=== PATIENT | female | born 1955 | race Caucasian/White ===

== ENCOUNTER 2019-01-28 13:40 | Outpatient (CLI) | payer OTHER ==
--- NOTE | 2019-01-28 15:01 | MMO ---
Bilateral MAMMO Bilat Screen [facility]. CLINICAL HISTORY: Patient is 64 years old and is seen for screening. The patient has the following family history of breast cancer: sister and maternal grandmother. The patient has a history of other cancer at age 41. VIEWS: The views performed were: bilateral craniocaudal with tomosynthesis and bilateral mediolateral oblique with tomosynthesis. MAMMOGRAM FINDINGS: There are scattered fibroglandular densities. There are benign appearing calcifications seen in both breasts. There are no suspicious masses, suspicious calcifications, or new areas of architectural distortion. IMPRESSION: THERE IS NO MAMMOGRAPHIC EVIDENCE OF MALIGNANCY. A ROUTINE FOLLOW-UP MAMMOGRAM IN 1 YEAR IS RECOMMENDED. THE RESULTS OF THIS EXAM WERE SENT TO THE PATIENT. ACR BI-RADS Category 2 - Benign finding MAMMOGRAPHY NOTE: 1. A negative mammogram report should not delay a biopsy if a dominant of clinically suspicious mass is present. 2. Approximately 10% to 15% of breast cancers are not detected by mammography. 3. Adenosis and dense breasts may obscure an underlying neoplasm.
--- NOTE | 2019-01-28 15:17 | ULT ---
PELVIC ULTRASOUND: 01/28/19 HISTORY: Postmenopausal bleeding. Patient has history of vulvar malignancy. When she uses a vaginal cream she starts bleeding. TECHNIQUE: Multiplanar dubois scale and color Doppler images are obtained in a transabdominal and transvaginal pel piper ultrasound. The ovaries were not definitely seen. FINDINGS: The uterus is heterogeneous in appearance. There is thinning of the myometrium but there is a thicken ed endometrial stripe which is heterogeneous in appearance. The endometrial stripe measures 4.4 cm i n thickness. No free fluid is seen in the pelvis. Neither ovary is identified. IMPRESSION: Thickened endometrial stripe could be secondary to a uterine malignancy or endometrial hyperplasia. POS: [facility]
== END 2019-01-28 13:41 | disposition home or self-care (01) ==
LOC: BICULT 13:40
PROVIDERS: ATTEND Family Medicine
DX: Z12.31 Encounter for screening mammogram for malignant neoplasm of breast (principal); N95.0 Postmenopausal bleeding; R93.89 Abnormal findings on diagnostic imaging of other specified body structures; Z80.3 Family history of malignant neoplasm of breast; Z85.89 Personal history of malignant neoplasm of other organs and systems
CPT/HCPCS: 76856; 77063; 77067

== ENCOUNTER 2019-02-13 06:01 | Day surgery (SDC) | payer OTHER ==
[2019-02-12 12:54] VITALS: BMI 28.3
--- NOTE | 2019-02-13 07:55 | HP ---
HISTORY OF PRESENT ILLNESS: This is a 64-year-old female, referred to me for evaluation of occult GI bleeding. She has no family history of colon cancer. The patient had lower abdominal cramping pain off and on. The patient was in her primary care doctor and had a stool testing done for an occult blood. The stool came back positive for occult blood. The patient has no upper GI symptoms. The patient comes for a colonoscopy for colon cancer screening and evaluation of occult GI bleeding. ALLERGIES: NONE. SOCIAL HISTORY: The patient smokes. She drinks alcohol socially. MEDICAL ILLNESSES: 1. Depression. 2. Insomnia. 3. Hyperlipidemia. 4. Vulvectomy in the past. PHYSICAL EXAMINATION: GENERAL: Appears comfortable. VITAL SIGNS: Pulse is 75, blood pressure is 150/90. HEENT: Conjunctivae clear. CARDIOVASCULAR SYSTEM: First and second heart sounds normal. LUNGS: Clear to auscultation. ABDOMEN: Soft. No organomegaly. No tenderness. No masses. ADMITTING DIAGNOSIS: A 64-year-old female comes for a colonoscopy for colon cancer screening. She also had positive stool for occult blood. Job ID: [id number] MTDD
[2019-02-13] MEDS ORDERED: PROPOFOL 200 MG/20 ML VIAL ONE (16:19)
[2019-02-13] MEDS ORDERED: Lidocaine 1% PF 5 ML VIAL ONE (16:19)
--- NOTE | 2019-02-16 13:05 | OP ---
DATE OF PROCEDURE: 02/13/2019 PREOPERATIVE DIAGNOSIS: A 64-year-old female with occult gastrointestinal bleeding, undergoing colonoscopy. POSTOPERATIVE DIAGNOSES: 1. Sigmoid diverticular disease. 2. Sessile polyp, hepatic flexure, status post snare cautery with good hemostasis. 3. Markedly redundant, tortuous colon. PROCEDURE PERFORMED: Colonoscopy with polypectomy. DESCRIPTION OF PROCEDURE: The patient was placed on her left lateral position and was given sedation by Anesthesia Department. A rectal exam was done before the scope was advanced into the rectum. No lesions felt on rectal exam. A Pentax video colonoscope was introduced into the rectum and advanced all the way into the cecum. The prep was very good. The mucosa appeared normal throughout the colon. The patient's colon was very tortuous, redundant colon. Abdominal compression was used to advance the scope all the way into the cecum. The appendicular opening, ileocecal wall, and cecum, no pathology. The ascending colon, no lesion. The hepatic flexure showed a sessile polyp. This was removed with snare cautery with good hemostasis. The transverse colon, splenic flexure, descending colon, no pathology. The sigmoid colon showed scattered diverticula. Rectal hemorrhoids. DISCHARGE PLAN: This is a 64-year-old female, referred to me by Dr. Kavya Bauer for colonoscopy because of heme-positive stool. She underwent colonoscopy and polypectomy. DISCHARGE RECOMMENDATIONS: 1. The patient advised to call me if she develops any abdominal pain, hematochezia, or fever. 2. In the absence of any of the above symptoms, she will come back to me in 2 weeks. Job ID: [id number]
== END 2019-02-13 09:55 | disposition home or self-care (01) ==
LOC: SDC 06:01
PROVIDERS: ATTEND Internal Medicine Gastroenterology
PROC: 0DBL8ZX Excision of Transverse Colon, Via Natural or Artificial Opening Endoscopic, Diagnostic (ICD-10-PCS; principal; 2019-02-13)
DX: D12.3 Benign neoplasm of transverse colon (principal); K57.31 Diverticulosis of large intestine without perforation or abscess with bleeding; K63.89 Other specified diseases of intestine; K64.9 Unspecified hemorrhoids; F32.9 Major depressive disorder, single episode, unspecified; F17.200 Nicotine dependence, unspecified, uncomplicated; G47.00 Insomnia, unspecified; E78.5 Hyperlipidemia, unspecified; Z79.899 Other long term (current) drug therapy
CPT/HCPCS: 88305; J2001; J2704

== ENCOUNTER 2019-03-06 08:29 | Outpatient (CLI) | payer OTHER ==
--- NOTE | 2019-03-06 10:26 | CT ---
CT CHEST WITH IV CONTRAST CT ABDOMEN WITH IV CONTRAST CT PELVIS WITH IV CONTRAST: HISTORY: Cancer of isthmus uteri. COMPARISON: None. CORRELATION: Pelvic ultrasound of 01/28/2019. FINDINGS: No mediastinal, hilar, or axillary mass or lymphadenopathy is seen. No pleural or pericardial effusi ons are identified. No pneumothoraces, focal areas of consolidation, or lung nodules/masses are iden tified. No calcified gallstones are noted. There is a 1.5 cm heterogeneous lesion in the lateral segment of the left lobe of the liver. There is borderline splenomegaly measuring 13.3 cm in oblique AP dimensi on. The pancreas, adrenal glands, and left kidney are normal. There is a small low-density lesion i n the right kidney, likely a cyst. No free air, free fluid, or lymphadenopathy is seen in the abdomen or pelvis. There is a suggestion of a mass in the uterus. The small bowel loops are not abnormally dilated. There is sigmoid diverti culosis. There is prominence of the wall of the sigmoid colon. There are vascular calcifications without evidence of aneurysmal dilatation of the thoracoabdominal a neptali. Multilevel degenerative changes are seen in the thoracolumbar spine. No osteolytic or osteobl astic lesions are noted. IMPRESSION: 1. Indeterminate 15 mm left liver lobe lesion. Evaluation with PET scan would be helpful. 2. Borderline splenomegaly. 3. Sigmoid diverticulosis. 4. Prominence of the wall of the sigmoid colon. This should be evaluated with colonoscopy. POS: [facility]
[2019-03-06] MEDS ORDERED: ISOVUE-370 76%-LOCM 1 ML ONE (11:42)
== END 2019-03-06 08:30 | disposition home or self-care (01) ==
LOC: BICCT 08:29
PROVIDERS: ATTEND Obstetrics & Gynecology Gynecologic Oncology
DX: C54.0 Malignant neoplasm of isthmus uteri (principal); K57.30 Diverticulosis of large intestine without perforation or abscess without bleeding; K76.9 Liver disease, unspecified; R16.1 Splenomegaly, not elsewhere classified
CPT/HCPCS: 71260; 74177; 82565; Q9966

== ENCOUNTER 2019-04-03 08:11 | Outpatient (CLI) | payer OTHER ==
--- NOTE | 2019-04-03 10:13 | MRI ---
MRI ABDOMEN WITH AND WITHOUT IV CONTRAST: HISTORY: Cancer of the uterus, abnormal CT scan of 03/06/2019, other specified disease of liver Correlation: CT scan of 03/06/2019 FINDINGS: There is a 15 mm lesion in the left lobe of the liver with low T1, high T2 signal and no postcontrast enhancement, consistent with a simple cyst. Tiny cysts are also seen in the kidneys. The spleen, pancreas, adrenal glands and gallbladder appear normal. No free fluid or lymphadenopathy seen in the abdomen. There are degenerative changes in the spine. There is a tiny fat-containing abdominal wall hernia involving the right paramedian lower anterior abdomen.. IMPRESSION: No evidence of metastatic disease.
[2019-04-03] MEDS ORDERED: Gadobenate Dimeglumine 529 MG/1 ML (20ML VIAL) ONE (16:09)
== END 2019-04-03 08:12 | disposition home or self-care (01) ==
LOC: SCSMRI 08:11 → BICMRI 08:12
PROVIDERS: ATTEND Obstetrics & Gynecology Gynecologic Oncology
DX: K76.89 Other specified diseases of liver (principal); C54.0 Malignant neoplasm of isthmus uteri
CPT/HCPCS: 74183; A9577

== ENCOUNTER 2019-04-16 09:06 | Day surgery (SDC) | payer OTHER ==
[2019-04-15 14:20] VITALS: BMI 27.4
[2019-04-16 11:06] LABS: #Eosinphils 0.5 thou/uL (0.0-0.7); #Lymphocytes 1.8 thou/uL (1.20-3.40); #Monocytes 0.5 thou/uL (0.11-0.59); #Neutrophils 3.8 thou/uL (1.40-6.50); %Basophils 0.5 % (0.0-1.0); %Eosinophils 7.1 % (0.0-10.0); %Lymphocytes 26.8 % (21.0-51.0); %Monocytes 7.8 % (0.0-10.0); %Neutrophils 57.7 % (42.0-75.0); Hemoglobin 14.9 g/dL (12.0-16.0); Mean Corpuscular HGB CONC 34.2 g/dL (32.0-36.0); Mean Corpuscular Hemoglobin 33.9 pg (27.0-31.0); Mean Corpuscular Volume 99.2 fL (78.0-98.0); Mean Platelet Volume 8.5 fL (7.4-10.4); Platelet Count 175 thou/uL (130-400); RBC Distribution Width 12.5 % (11.5-14.5); Red Blood Cell (RBC) Count 4.38 mill/uL (4.20-5.40); White Blood Cell (WBC) Count 6.6 thou/uL (4.8-10.8)
[2019-04-16] MEDS ORDERED: Ketorolac Tromethamine 30 MG/ML VIAL ONE (11:09)
[2019-04-16 11:32] LABS: Anion Gap 13 mmol/L (10-20); BUN (Urea Nitrogen) 16 mg/dL (9.8-20.1); Calc. Creatinine Clearance 85 mL/min (70-130); Calcium 9.6 mg/dL (7.8-10.44); Carbon Dioxide 26 mmol/L (23-31); Chloride 104 mmol/L (98-107); Estimated GFR-MDRD 81; Glucose 101 mg/dL (80-115); Potassium 4.6 mmol/L (3.5-5.1); Sodium 138 mmol/L (136-145)
[2019-04-16] MEDS ORDERED: Midazolam HCl 2 mg/2 ml Vial ONE (12:31)
[2019-04-16] MEDS ORDERED: Lidocaine 1% (PF) 30 ML VIAL ONE (13:13)
[2019-04-16] MEDS ORDERED: Bupivacaine/Epinephrine 0.25% 30 ML VIAL ONE (13:13)
[2019-04-16] MEDS ORDERED: Glycopyrrolate 0.2 MG/ML 5 ML SYRINGE ONE (14:04)
[2019-04-16] MEDS ORDERED: PROPOFOL 200 MG/20 ML VIAL ONE (14:04)
[2019-04-16] MEDS ORDERED: ePHEDrine 50 MG/ML VIAL ONE (14:04)
[2019-04-16] MEDS ORDERED: HYDROcodone/Acetaminophen 5/325 mg Tablet ONE (14:50)
--- NOTE | 2019-04-16 17:26 | RAD ---
RADIOGRAPH CHEST 1 VIEW: 04/16/19 HISTORY: 64-year-old female status post Mediport placement. FINDINGS: There are no air space densities, pulmonary edema, pneumothorax, or cardiomegaly. The lateral costop hrenic angles are sharp. There is a right subclavian chest port with distal tip overlying the SVC. IMPRESSION: 1. No acute cardiopulmonary findings. 2. Right sided implantable vascular access port placement without pneumothorax. jn [] POS: [facility]
--- NOTE | 2019-04-17 10:46 | OP ---
DATE OF PROCEDURE: 04/16/2019 PREOPERATIVE DIAGNOSIS: Endometrial cancer. POSTOPERATIVE DIAGNOSIS: Endometrial cancer. PROCEDURE PERFORMED: Placement of right subclavian stent standard size power compatible MediPort. ANESTHESIA: Total intravenous anesthesia with local using 0.25% Marcaine with epinephrine. INDICATIONS: The patient is a 64-year-old white female recently diagnosed with endometrial cancer. She presents this time for MediPort placement for chemotherapy administration. DESCRIPTION OF OPERATION: Informed consent was obtained. The patient was taken to the operating room where total intravenous anesthesia was obtained with the patient in supine position. Right periclavicular area was prepped with ChloraPrep and draped in sterile fashion. Local anesthetic was infiltrated and a large-gauge needle was passed under the clavicle in the subclavian vein. Guidewire was passed through the needle and fluoroscopically confirmed to enter the superior vena cava. Additional local anesthetic was infiltrated and transverse incision was created based on needle insertion site. A subcutaneous pocket was dissected inferiorly. Introducer dilator was passed over the guidewire under fluoroscopic guidance. The guidewire and dilator were removed, and the catheter was passed through the introducer. The tip of the catheter was positioned at the atriocaval junction and the catheter was trimmed to the appropriate length and secured to the locking hub of the MediPort. The port was then placed in the subcutaneous pocket where it was secured to the pectoral fascia with 2 interrupted sutures of 3-0 Prolene. The incision was then closed in layers with 3-0 and 4-0 Monocryl. Additional local anesthetic was infiltrated. The port was cannulated with a Ann needle and it aspirated blood freely and was flushed with heparinized saline. Dermabond was placed externally on the skin incision. There were no complications. Blood loss was negligible. The patient tolerated the procedure well and was taken to recovery room in stable condition. FINDINGS: I chose a standard size port and this was placed in the right subclavian vein uneventfully. There was essentially no blood loss and there were no complications. Fluoroscopy was used throughout the procedure. The patient tolerated the procedure well and was taken to recovery room in stable condition. Job ID: [id number]
== END 2019-04-16 15:03 | disposition home or self-care (01) ==
LOC: SDC 09:06
PROVIDERS: ATTEND Specialist
PROC: 05H533Z Insertion of Infusion Device into Right Subclavian Vein, Percutaneous Approach (ICD-10-PCS; principal; 2019-04-16)
DX: C54.1 Malignant neoplasm of endometrium (principal); F32.9 Major depressive disorder, single episode, unspecified; F17.210 Nicotine dependence, cigarettes, uncomplicated; A63.0 Anogenital (venereal) warts; Z79.899 Other long term (current) drug therapy
CPT/HCPCS: 71045; 76000; 80048; 85025; 93005; 93010; C1788; J0131; J0690; J1642; J1885; J2001; J2250; J2704; J3490

== ENCOUNTER 2020-04-17 14:18 | Inpatient (IN) | payer OTHER ==
[~2020-04-17 14:18] MED LIST: Dexamethasone 20 MG/5 ML VIAL ONE; EPHEDRINE 25 MG/5 ML SYRINGE ONE; Ketorolac Tromethamine 30 MG/ML VIAL ONE; Lidocaine 1% PF 5 ML VIAL ONE; Ondansetron PF 4 MG/2 ML Vial ONE; PROPOFOL 200 MG/20 ML VIAL ONE
[2020-04-17] MEDS ORDERED: Iothalamate Meglumine 60% 50 ML VIAL FS ONE (15:34)
[2020-04-17] MEDS ORDERED: Acetaminophen 325 MG TAB PO PRN (15:43)
[2020-04-17] MEDS ORDERED: Morphine 2 MG/ML VIAL SLOW IVP PRN (15:45)
[2020-04-17] MEDS ORDERED: Meperidine HCl/PF 25 MG/ML VIAL SLOW IVP PRN (16:10)
[2020-04-17] MEDS ORDERED: Promethazine HCl 25 MG/ML VIAL SLOW IVP PRN (16:10)
[2020-04-17] MEDS ORDERED: Ondansetron HCl/PF 4 MG/2 ML Vial IVP PRN (16:10)
[2020-04-17] MEDS ORDERED: Promethazine HCl 25 MG/ML VIAL IM PRN (16:10)
[2020-04-17] MEDS ORDERED: Levofloxacin 500 mg/D5W 100 ml Premix Bag ONE (16:16)
--- NOTE | 2020-04-17 16:45 | HP ---
CHIEF COMPLAINT: Back pain. HISTORY OF PRESENT ILLNESS: This is a 65-year-old female with history of endometrial cancer, treated with surgery, chemotherapy (last treatment in July 2019), and radiation therapy, who presents to [facility] with a complaint of back pain. The patient reports approximately 10 or 11 days ago the onset of a bloating sensation in her abdomen when she ate. This was followed by approximately a week ago pain on the left side of her back that alternates between throbbing, aching, and stabbing. The pain has been fairly constant, radiates underneath her left ribs. There is no prior history of similar symptoms. She has been taking Advil approximately two tablets every 2 hours to relieve the pain that she rates at a 9/10 in severity at the worst, and a 4/10 with Advil. No associated nausea, vomiting. No chest pain or difficulty breathing. The patient reports a history of endometrial cancer for which she underwent a complete hysterectomy. She reports having three cycles of chemotherapy, and three weeks out of four of radiation therapy. She reports being sick with mouth ulcers, gastritis, and some other GI symptoms and choosing not to complete treatment. The patient was seen in [facility], for which she had a CT scan which shows obstruction of her left ureter by a soft tissue mass, hydronephrosis and forniceal rupture. Dr. Bergman of Urology was contacted, and hospitalist called for transfer and admission. The patient received 4 mg IV morphine x3, Ketoralac 15 mg IV, normal saline 1 L x2, and Zofran 4 mg IV. PAST MEDICAL HISTORY: 1. Endometrial cancer, status post chemotherapy and radiation therapy, both incomplete as reported above. 2. Depression. 3. Insomnia. 4. Dyslipidemia. PAST SURGICAL HISTORY: 1. Complete hysterectomy. 2. Port placement. CURRENT MEDICATIONS per patient and chart review: 1. Zoloft 25 mg once daily. 2. Trazodone 50 mg at night. ALLERGIES: THE PATIENT DENIES. SOCIAL HISTORY: The patient smokes about a half a pack per day, long-standing use. Alcohol, one glass of wine at night. She denies any history of withdrawal symptoms. She lives with her boyfriend and reports that either he or her daughter Tasia are the surrogate decision makers. She is a full code. FAMILY HISTORY: Significant for different types of cancer, heart disease and stroke. REVIEW OF SYSTEMS: Negative for any visual changes. Positive for dry mouth. Negative for nausea, vomiting, fevers, chills, chest pain or difficulty breathing. All remaining review of systems are reviewed and negative. PHYSICAL EXAMINATION: VITAL SIGNS: Out at [facility], blood pressure was 160/82, pulse 79, respirations 16, sat 100% on room air, temp 98.3. GENERAL: Awake, alert, responsive, not in apparent distress. Able to speak in full sentences. HEENT: Her pupils are equal and round. No scleral icterus. Oral mucosa is pink and dry. NECK: Supple. Nontender. LYMPHATICS: No palpable cervical or supraclavicular lymphadenopathy. LUNGS: Clear to auscultation bilateral. No audible wheezing, rhonchi, or rales. HEART: Normal S1, S2. Regular rate and rhythm. No significant murmur. BACK: Positive CVA tenderness on the left. ABDOMEN: Soft. Present bowel sounds. Nontender, nondistended. EXTREMITIES: No pitting edema. NEURO: No focal deficits. VASCULAR: 2+ dorsalis pedis pulses. SKIN: No visible rashes. LABORATORY DATA: Reviewed from [facility]. Urinalysis shows moderate bilirubin, 40 ketones, specific gravity greater than 1.03, present protein, urobilinogen, negative nitrite and leuk esterase. CBC; 7.3, 13.8, 39.8, 216. Chemistry; 137, 3.8, 107, 21, 16, 1.1, 112. Liver function tests; albumin 3.8, alk phos 66, ALT 29, AST 30, T bilirubin 0.5. CT abdomen and pelvis shows abnormal soft tissue density encasing the aortic bifurcation and proximal common iliac vessels, likely causing obstruction of the left ureter. Differential includes metastatic malignancy; delayed left nephrogram with moderate hydroureteronephrosis. Extensive edema surrounding the left renal pelvis suggests forniceal rupture; colonic diverticulosis without evidence of acute diverticulitis. IMPRESSION: 1. Left hydroureteronephrosis from a soft tissue density compression, creating back pain in this patient with history of endometrial cancer and incomplete treatment. 2. Depression. 3. Insomnia. 4. Dyslipidemia. 5. Tobacco abuse. PLAN: 1. Inpatient status in the hospital as I anticipate care is going to cross over two midnights both for procedure as well as for Oncology evaluation. 2. Dr. Bergman has seen the patient already with plan for ureteral stent placement and Lujan catheter. 3. Oncology consult. The patient has been seen in the Oncology Clinic previously. She does request a different provider than she has seen in the past, we will annotate that in the consult. 4. Monitoring her renal function. 5. Treating the pain. 6. No indication for antibiotics. We will hold on this for now pending Dr. Bergman's recommendation. 7. Continuing her sertraline. Hold on the trazodone as she will likely be on pain medication tonight. 8. IV fluid hydration. 9. Tobacco replacement. The patient reports that she currently does have a patch in place. We will order that. 10. DVT prophylaxis with pneumatic compression devices. Holding pharmacologic DVT prophylaxis secondary to the patient undergoing a procedure. 11. GI prophylaxis not indicated. 12. Code status is full. Surrogate decision maker is either the patient's significant other or her daughter as noted above. 13. The patient is at high risk given age, comorbidities and current presentation. 14. Reviewed the plan of care with the patient who demonstrates understanding and agrees. No questions or further needs at the end of evaluation. Addendum - spoke with Dr. Bergman after the procedure and he recommends evaluation of the CT scan here by the Radiologists for determination on soft tissue density. A disk was sent over by [facility]. Job ID: [id number] MTDD
--- NOTE | 2020-04-17 17:09 | CON ---
DATE OF CONSULTATION: 04/17/2020 CHIEF COMPLAINT: 1. Left-sided flank. 2. History of uterine cancer, status post hysterectomy with bilateral salpingo-oophorectomy followed by chemo and radiation. 3. Left perinephric fluid collection suggestive of forniceal rupture. BRIEF HISTORY: Ms. Sofi Soto is a very pleasant 65-year-old white female with a history of uterine cancer. She has already undergone a previous hysterectomy with bilateral salpingo-oophorectomy. This has been treated with chemo and radiation for uterine cancer. She presented to the [facility] on the a.m. hours of 04/17/2020, with complaint of left-sided flank pain. She underwent CT scanning there, which demonstrated the presence of a delayed nephrogram on the left side as well as hydronephrosis of the left kidney and hydroureter of the upper portion of the patient's ureter on the left side. In addition, there was a perinephric fluid collection. The patient reports no prior genitourinary surgery. She did undergo the hysterectomy as noted. Today, she is only complaining of left-sided flank pain and desires treatment of her condition. ALLERGIES: NO KNOWN DRUG ALLERGIES. MEDICATION LIST: The patient is currently taking the following; 1. Sertraline 25 mg p.o. daily. 2. Trazodone 50 mg p.o. at bedtime for insomnia. 3. Oxycodone as required for pain. PAST MEDICAL HISTORY: 1. Endometrial carcinoma, status post hysterectomy and bilateral salpingo-oophorectomy, status post chemo and radiation. 2. Depression. 3. Insomnia. PHYSICAL EXAMINATION: VITAL SIGNS: As per chart. HEAD, EYES, EARS, NOSE, AND THROAT: Extraocular movements are intact. Sclerae are anicteric. Oropharynx is clear. NECK: Supple. LUNGS: Clear to auscultation bilaterally. CARDIAC: There is a regular rate and rhythm. CHEST: Finds a chemo port present. BACK: The patient has no evidence of right-sided costovertebral angle tenderness and positive left CVA tenderness. PELVIC: Deferred to the operative suite. IMAGING STUDIES: Reviewed. [facility] CT scan of the abdomen pelvis on 04/17/2020 was reviewed on a CD-ROM of images provided. This demonstrates presence of left-sided hydronephrosis of the left kidney with delayed nephrogram. There is dilation of the proximal ureter on the left side, which terminates in the mid abdomen. There is a left perinephric fluid, consistent with a forniceal rupture on the left side. ASSESSMENT AND PLAN: History of uterine cancer with radiation therapy treatment. Obstruction of the patient's ureter could be caused either by regrowth of tumor or by stricturing secondary to radiation therapy. The plan will be to proceed to the operative suite for retrograde pyelography bilaterally, in addition, probable stenting on the left side. The patient and I discussed risks and benefits of such a procedure, and she is in agreement with proceeding in that direction. Discussed with the patient there are many possibilities of difficulties getting access, and in addition, there are alternatives to indwelling ureteral stents, which would include percutaneous nephrostomy placement. Over 70 minutes of initial consultation, evaluation, and assessment time as well as coordination of care time was spent in the care of this patient today. Those times are exclusive of any procedures performed. Job ID: [id number]
[2020-04-17] MEDS ORDERED: B & O ONE (17:11)
[2020-04-17] MEDS ORDERED: Fentanyl 100 MCG/2 ML VIAL ONE ×2 (17:25→17:36)
[2020-04-17] MEDS ORDERED: Promethazine HCl 25 MG/ML VIAL ONE (17:28)
[2020-04-17] MEDS ORDERED: Meperidine HCl/PF 25 MG/ML VIAL ONE (17:28)
--- NOTE | 2020-04-17 18:42 | RAD ---
RETROGRADE PYELOGRAM TEN VIEWS: Date: 04-17-2020 HISTORY: 65-year-old female with no medical history available other than bilateral stent placement. FINDINGS: A total of 10 images. The first image demonstrates faint contrast material already present within mil dly dilated right renal pelvis, moderately dilated left renal pelvis, and moderately dilated left perico ices, and faint contrast material within nondilated bilateral proximal ureters. Cystoscopy is in plac e in the first image. The second image demonstrates contrast injection into the right UVJ demonstrating diffusely small perico iber of the lower half of the right ureter, plus a small round focal filling defect in right upper po le major dru. Subsequent injection into contralateral left UVJ demonstrates diffusely small caliber distal half of the left ureter, and contrast opacification of left renal collecting system. Subsequently, a left ureteral stent is placed with upper portion with double loops in the left renal pelvis and drainage of the contrast material from the left renal collecting system, except for some r esidual in minor calices. The lower curl of the left ureteral stent is not formed. Instead, loops of wire emanate from the lowe r portion of the stent into midline of the lower pelvis, presumably in the bladder. The same image demonstrates placement of a guide wire ascending the right ureter, into the right blaire l pelvis. Subsequently, a right ureteral stent has been placed, but the upper curl is not visible, perhaps due to dense contrast material in the dilated right renal collecting system. Lower curl of the right sten t is also not formed. Final image demonstrates decompression, with interval resolution of the dilation of all of the bilate ral minor calices. Contrast material remains in the dilated right renal pelvis. No lower curls of the bilateral ureteral stents are present. The loops of wire medially from the lower portion of the left ureteral stent remains. The final image demonstrates new Lujan catheter balloon with tip of catheter deeply tenting the bladder. Minimal amount of contrast material in the collapsed bladder. IMPRESSION: 1. Evidence for bilateral partial ureteral obstruction, perhaps from extrinsic masses in the upper pe lvis, with bilateral hydronephrosis. 2. Placement of bilateral ureteral stents. 3. The lower pigtail loops of the ureteral stents are not formed as of the final image. POS: [facility]
[2020-04-17] MEDS: Sodium Chloride 0.9% 1,000 ML IV SCH (18:43)
[2020-04-17] MEDS: Morphine 4 MG/ML VIAL SLOW IVP PRN (20:15)
--- NOTE | 2020-04-17 20:22 | OP ---
DATE OF PROCEDURE: 04/17/2020 PREOPERATIVE DIAGNOSIS: 1. Left ureteral obstruction with forniceal rupture. 2. History of endometrial cancer, status post hysterectomy, bilateral salpingo-oophorectomy, chemotherapy and external beam radiation therapy to the pelvis. 3. Left-sided flank pain. POSTPROCEDURE DIAGNOSES: 1. Left ureteral obstruction with forniceal rupture. 2. History of endometrial cancer, status post hysterectomy, bilateral salpingo-oophorectomy, chemotherapy and external beam radiation therapy to the pelvis. 3. Left-sided flank pain. 4. Stricturing of the bilateral ureters, severe with obstructive effect on both sides. 5. Status post bilateral Polaris loop stent placement to the bilateral ureters. BRIEF HISTORY AND INDICATION FOR PROCEDURE: Ms. Sofi Dickey is a very pleasant 65-year-old white female, admitted on 04/17/2020, after evaluation in the [facility] Emergency Room on the same day, where she underwent CT scanning demonstrating forniceal rupture of left renal pelvis. The patient presented to the emergency department here and opted to proceed to the operating room for cystoscopy and stent placement as well as bilateral retrograde pyelography. DESCRIPTION OF PROCEDURE: The patient was appropriately identified. Informed written consent was obtained. The patient was taken to the operative suite and placed in the supine position. General anesthesia was established. The patient was prepped and draped in usual sterile fashion after positioning in the supine lithotomy position. She underwent cystoscopic evaluation, which identified bilateral ureteric orifices with minimal urine output from the right side and no urine output from the left. We accessed the right ureter and performed retrograde pyelography, demonstrating a stricture of the patient's ureter to about the upper pelvic brim. The contrast was left indwelling in the patient's collecting system on the right and did not drain properly after administration, suggesting high-grade obstruction there. On the patient's left side, retrograde evaluation required a fair amount of pressure and we could only evaluate the ureter with pressure and full-strength contrast. Here, we found the ureter was down to about the diameter of a wire. After retrograde pyelography, we placed a left-sided 8-Kyrgyz x 26 cm Polaris loop stent in the patient's collecting system, obtained good coil in the renal pelvis and the loops in proper position in the patient's bladder. Then, I performed identical procedure on the patient's right side, placing an 8-Kyrgyz x 26 cm Polaris loop stent in the right side. We removed the string from both stents. We then placed a 22-Kyrgyz 2-way Lujan catheter in the patient's bladder with intention of draining the upper collecting system on the left until forniceal rupture closes. The patient tolerated the procedure well and received a belladonna and opioid suppository in the operating room per rectum. Drainage was clear with no evidence of gross blood. She tolerated the procedure well and was transported to the postoperative recovery area in good condition. COMPLICATIONS: None. DRAINS AND TUBES: Bilateral stents, 8-Kyrgyz x 26 cm Polaris loop. 22-Kyrgyz 2-way Lujan catheter to gravity drainage bag. Job ID: [id number]
[2020-04-17] MEDS: Phenazopyridine HCl 97.5 MG TABLET PO SCH (20:26)
[2020-04-17] MEDS: traZODone HCl 50 MG TAB PO SCH (21:02)
[2020-04-17] MEDS: Trospium 20 MG TAB PO SCH (21:02)
[2020-04-18] MEDS: Morphine 4 MG/ML VIAL SLOW IVP PRN ×6 (00:09→22:27)
[2020-04-18] MEDS: Sodium Chloride 0.9% 1,000 ML IV SCH ×3 (01:30→13:00)
[2020-04-18 05:13] LABS: #Lymphocytes 0.5 thou/uL (1.20-3.40); #Monocytes 0.4 thou/uL (0.11-0.59); #Neutrophils 3.8 thou/uL (1.40-6.50); %Basophils 0.3 % (0.0-1.0); %Eosinophils 0.2 % (0.0-10.0); %Lymphocytes 10.8 % (21.0-51.0); %Monocytes 7.6 % (0.0-10.0); %Neutrophils 81.2 % (42.0-75.0); Hemoglobin 12.9 g/dL (12.0-16.0); Mean Corpuscular HGB CONC 33.1 g/dL (32.0-36.0); Mean Corpuscular Hemoglobin 35.1 pg (27.0-31.0); Mean Platelet Volume 7.5 fL (7.4-10.4); Platelet Count 195 thou/uL (130-400); RBC Distribution Width 12.7 % (11.5-14.5); Red Blood Cell (RBC) Count 3.68 mill/uL (4.20-5.40); White Blood Cell (WBC) Count 4.7 thou/uL (4.8-10.8)
[2020-04-18 05:19] LABS: Anion Gap 12 mmol/L (10-20); BUN (Urea Nitrogen) 13 mg/dL (9.8-20.1); Calc. Creatinine Clearance 79 mL/min (70-130); Carbon Dioxide 24 mmol/L (23-31); Chloride 108 mmol/L (98-107); Estimated GFR-MDRD 66; Glucose 120 mg/dL (80-115); Potassium 3.6 mmol/L (3.5-5.1); Sodium 140 mmol/L (136-145)
[2020-04-18] MEDS: Ondansetron PF 4 MG/2 ML Vial IVP PRN (07:10)
--- NOTE | 2020-04-18 07:17 | PDOC.HOSPP ---
- Subjective Encounter Date: 04/18/20 Encounter Time: 10:30 Subjective: Patient with resolution of left back pain after stent placement. However she is now having diffuse lower abdominal pain and severe low back pain over the coccyx. No improvement with Bland. Given IV Morphine and feeling significantly better. States she hasn't had this coccyx pain before, thinks it may be the bed and not getting up enough. - Objective Vital Signs & Weight: Vital Signs (12 hours) Temp Pulse Resp BP Pulse Ox 04/18/20 04:00 97.6 F 56 L 16 105/55 L 96 04/18/20 00:00 97.6 F 74 20 124/57 L 93 L 04/17/20 19:16 97.9 F 76 16 122/62 94 L Weight Weight 169 lb I&O: 04/17/20 04/18/20 04/19/20 06:59 06:59 06:59 Intake Total 1600 Output Total 675 Balance 1600 -675 Result Diagrams: 04/18/20 04:35 04/18/20 04:35 Hospitalist ROS - Review of Systems Constitutional: denies: fever, chills Respiratory: denies: cough, shortness of breath Cardiovascular: denies: chest pain, palpitations Gastrointestinal: denies: nausea, vomiting - Medication Medications: Active Medications Generic Name Dose Route Start Last Admin Trade Name Freq PRN Reason Stop Dose Admin Sodium Chloride 1,000 mls @ 100 mls/hr 04/17/20 15:45 04/18/20 04:40 Normal Saline 0.9% IV 1,000 mls .Q10H ELEONORA Administration Morphine Sulfate 4 mg 04/17/20 15:45 04/18/20 04:29 Morphine SLOW IVP 4 mg Q4H PRN Administration Severe Pain (7-10) Ondansetron HCl 4 mg 04/17/20 15:43 04/18/20 07:10 Zofran IVP 4 mg Q6H PRN Administration Nausea/Vomiting Phenazopyridine HCl 97.5 mg 04/17/20 21:00 04/17/20 20:26 Azo Standard PO 97.5 mg BID ELEONORA Administration Trazodone HCl 100 mg 04/17/20 21:00 04/17/20 21:02 Desyrel PO 100 mg HS ELEONORA Administration Trospium 20 mg 04/17/20 21:00 04/17/20 21:02 Trospium PO 20 mg BID ELEONORA Administration - Exam General Appearance: NAD, awake alert ENT: moist mucosa Heart: RRR, no murmur, no gallops, no rubs Respiratory: CTAB, no wheezes, no rales, no ronchi Gastrointestinal: soft, non-tender, non-distended, normal bowel sounds Musculoskeletal: normal tone, normal strength Psychiatric: normal affect, normal behavior, A&O x 3 Hosp A/P (1) Renal rupture Code(s): S37.069A - MAJOR LACERATION OF UNSPECIFIED KIDNEY, INITIAL ENCOUNTER Status: Acute (2) Bilateral ureteral obstruction Code(s): N13.5 - CROSSING VESSEL AND STRICTURE OF URETER W/O HYDRONEPHROSIS Status: Acute (3) Endometrial cancer Code(s): C54.1 - MALIGNANT NEOPLASM OF ENDOMETRIUM Status: Acute (4) Major depressive disorder Code(s): F32.9 - MAJOR DEPRESSIVE DISORDER, SINGLE EPISODE, UNSPECIFIED Status : Acute (5) Insomnia Code(s): G47.00 - INSOMNIA, UNSPECIFIED Status: Acute (6) Hyperlipidemia Code(s): E78.5 - HYPERLIPIDEMIA, UNSPECIFIED Status: Acute - Plan Patient status post bilateral renal stent placement on 04/17/2020 for bilateral ureter obstruction, likely from extrinsic compression by soft tissue mass seen on CT Suspect recurrence of endometrial cancer. Heme/Onc consulted. May need surgical or radiology consult for biopsy. Low back pain uncertain eitiology. Will monitor and image if persists. DVT proph: Lovenox GI proph: Pepcid BID
[2020-04-18] MEDS: HYDROcodone/Acetaminophen 5/325 mg Tablet PO PRN (07:52)
[2020-04-18] MEDS: Nicotine 21 MG PATCH TD SCH (07:58)
[2020-04-18] MEDS: Famotidine 20 MG TAB PO SCH ×2 (07:59→20:51)
[2020-04-18] MEDS: Phenazopyridine HCl 97.5 MG TABLET PO SCH ×2 (07:59→20:51)
[2020-04-18] MEDS ORDERED: Enoxaparin Sodium 40 MG/0.4 ML SYRINGE SC SCH (09:00)
[2020-04-18] MEDS: Trospium 20 MG TAB PO SCH ×2 (09:30→20:52)
--- NOTE | 2020-04-18 14:21 | RAD ---
Exam: Abdomen CT with and without contrast Pelvic CT with and without contrast HISTORY: Endometrial cancer. Left-sided hydronephrosis. COMPARISON: Chest abdomen pelvis CT 03/06/2019. FINDINGS: Abdomen CT: Lung bases are clear. Heart: Normal heart size. No pericardial effusion. There is atherosclerosis of a nonaneurysmal aorta. Patent portal vein. No evidence of cholelithiasis or cholecystitis. Appropriate enhancement of the solid organs. No gastrohepatic, retrocrural or periportal lymphadenopathy. No mesenteric mass, lymphadenopathy, free air or free fluid. Asymmetric edema involving the left psoas muscle. There is asymmetric decreased enhancement and delay ed enhancement of the left renal cortex. There is left perinephric fat stranding and enhancement involving the left renal pelvis and left ureter. No evidence of an associated obstructing calculus. P unctate nonobstructing calculus in the right intrarenal collecting system. No evidence of right-sided obstructive uropathy Mesentery: There is increased vascularization involving the right abdominal mesentery at the level of the aortic bifurcation. There is increased soft tissue density involving the aortic bifurcation and along both common iliac arteries. Postcontrast images demonstrates short segment moderate to gallo re luminal narrowing involving the proximal left common iliac artery. There is abnormal soft tissue attenuation extending into the prevertebral soft tissues at the L5-S1 level as well as along the fat. Alimentary canal: Diverticulosis. No diverticulitis. Pelvis CT: Surgically absent uterus. No pelvic mass, adenopathy or free air. Stranding of the presacral fat is described above. Osseous structures: No lytic or blastic lesions. IMPRESSION: 1. Moderate left-sided hydronephrosis with heterogeneous enhancement. There is a striated nephrogram phase. There is concern for pyelonephritis. 2. Asymmetric mild edema involving the left psoas muscle is nonspecific. There is abnormal soft tissu e density at the aortic bifurcation and along the course of both iliac arteries. There is luminal narrowing involving the left common iliac artery. 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 Patient is repo rted to have a history of external beam radiation therapy. The possibility of a concomitant infection cannot be excluded given left-sided pyelonephritis as well as asymmetric enhancement of the left intrarenal and extrarenal collecting system suggesting an ascending urinary tract infection. Results of study discussed with Colleen Vo on 04/18/2020 at 2:20 PM. Code CR
[2020-04-18 16:39] VITALS: BMI 29.2
[2020-04-18] MEDS: traZODone HCl 50 MG TAB PO SCH (20:52)
--- NOTE | 2020-04-18 21:12 | CON ---
DATE OF CONSULTATION: REASON FOR CONSULT: Endometrial adenocarcinoma. HISTORY OF PRESENT ILLNESS: Ms. 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 She had a total hysterectomy, then had 3 cycles of chemotherapy consisting of carboplatin and Taxol. She started radiation and received 27 Gy in 15 fractions. She had numerous treatment breaks during radiation and ultimately discontinued her therapy against medical advice. Her last radiation treatment was on July 28. She was to have 3 additional doses of chemo after radiation. She did not follow up for her last 3 cycles of chemotherapy despite multiple attempts by our office to schedule. The patient reported multiple toxicities throughout her treatment, Mainly, she had intractable nausea and vomiting despite medication. She did see GI had an EGD, which was unremarkable. She had no weight loss. No dehydration. Her vital signs were stable throughout treatment. She presented to [facility] Emergency Room with a 2-week history of abdominal bloating approximately 45 minutes after she ate. She had back pain. She was taking Advil 2 tablets every 2 hours for pain[address] scan was done at [facility], which showed abnormal soft tissue density encasing the aortic bifurcation and proximal common iliac vessels causing obstruction of the left ureter. There was associated delayed left nephrogram and moderate hydroureteronephrosis with extensive edema surrounding the left renal pelvis suggesting forniceal rupture. She had colonic diverticulitis. She was transferred to this facility for further treatment. Dr. Bergman saw the patient and performed retrograde pyelography and bilateral stent placement. She had a Lujan catheter placed. We were asked to see the patient regarding her abnormal soft tissue mass in her pelvis. The patient states that she has not been seen for follow-up due to quarantine from [place] [id number]. She complains of back pain and abdominal discomfort. 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 She attributes secondary to treatment to chemo. PAST MEDICAL HISTORY: 1. Stage IIIC1 adenocarcinoma of the endometrium. 2. Chronic back pain. 3. Tobacco use. 4. High cholesterol. 5. Anxiety and depression. 6. Acid reflux. 7. Hemorrhoids. PAST SURGICAL HISTORY: 1. Complete hysterectomy. 2. MediPort placement. ALLERGIES: NO KNOWN DRUG ALLERGIES. HOME MEDICATIONS: 1. Zoloft. 2. Trazodone. 3. Advil. FAMILY HISTORY: Sister has an unknown type of cancer. SOCIAL HISTORY: Single, 2 children, 44 pack-year history of smoking. Drinks wine routinely. No illicit drug use. REVIEW OF SYSTEMS: A 10-point review of systems is negative except for noted in HPI. PHYSICAL EXAMINATION: VITAL SIGNS: Temperature is 98.2, pulse is 63, respiratory rate 18, blood pressure is 130/71. She is 94% on room air. GENERAL: A well-developed, well-nourished female, in no acute distress. HEENT: Normocephalic, atraumatic. Pupils are equal and reactive to light. NECK: Supple. CV: Regular rate and rhythm. LUNGS: Clear anterior. ABDOMEN: Soft. Bowel sounds are positive. EXTREMITIES: No clubbing or cyanosis. SKIN: No rash. HEMATOLOGICAL: No petechiae or purpura. NEUROLOGIC: Nonfocal. PERTINENT LABORATORY DATA AND X-RAYS: Current WBCs are 4.7, hemoglobin 12.9, hematocrit 38.9, platelet count is 195,000, she has 81% neutrophils, 10% lymphocytes. Sodium is 140, potassium 3.6, chloride 108, CO2 is 24, BUN is 13, creatinine 0.87, calcium is 8. Radiology per HPI. ASSESSMENT: 1. Left hydroureteronephrosis from soft tissue compression. 2. History of endometrial adenocarcinoma with incomplete treatment. DISCUSSION: The patient provided CT images from [facility] on a disk. I carried the disk to the radiology reading room, where Dr. Lucero and Dr. Banks reviewed these images and compared to the patient's previous scans, the results have been dictated. It appears that this is likely post treatment fibrosis with possible concomitant infection. It is recommended she have a follow-up scan 6-8 weeks. This can be ordered by her PCP or Dr. Bergman. I discussed these findings with the patient. I strongly recommended that she follow up with her gynecological surgeon, Dr. Johnson, in the [place] and to take a copy of the scan with her. Case has been discussed with Dr. Sánchez. Thank you for the consult. Job ID: [id number] MTDD
[2020-04-18] MEDS: B & O PR PRN (21:31)
--- NOTE | 2020-04-19 01:00 | CON ---
DATE OF CONSULTATION: 04/18/2020 REASON FOR CONSULTATION: 1. Left ureteral obstruction with forniceal rupture of left kidney. 2. History of endometrial cancer, status post hysterectomy, bilateral salpingo-oophorectomy, chemotherapy, and external beam radiation therapy to the pelvis. 3. Left-sided flank pain. INTERVAL ISSUES: The patient is reporting bladder spasms and bladder pain after placement of bilateral stents and Lujan catheter placement on 04/17/2020. BRIEF HISTORY: Ms. Sofi Soto is a 65-year-old white female admitted on 04/17/2020 after evaluation in the [facility] Emergency Room on the same day where she underwent CT scan imaging demonstrating a forniceal rupture of the left renal pelvis. The patient presented to the emergency department here at [facility] and opted to proceed to the operating room for cystoscopy and stent placement as well as bilateral retrograde pyelography. The patient had bilateral stents placed due to failure to drain and obvious stricture secondary to radiation bilaterally. The patient underwent cystoscopic evaluation and placement of bilateral 8-Spanish x 26 cm polaris loop stents. She has an indwelling Lujan catheter as well. Over the last 24 hours, Lujan catheter has been to bag drainage at bedside. The patient is reporting bladder spasms and bladder discomfort, which is relatively significant, and due to that, I am recommending the patient proceed to use vented trauma suction to help drain her collecting systems bilaterally. In addition, we are making some recommendations today for modification of her bladder spasm protocol. PHYSICAL EXAMINATION: VITAL SIGNS: Temperature is 97.8. The patient is afebrile since stent placement. Pulse is 96, respirations 16, O2 saturations 94% on room air. Blood pressure seated is 139/65. GENERAL: Pleasant, awake, and alert white female, in no apparent distress. HEAD, EYES, EARS, NOSE, AND THROAT: Extraocular movements are intact. Sclerae anicteric. Oropharynx is clear. NECK: Supple. LUNGS: Clear bilaterally. CARDIAC: There is regular rate and rhythm. ABDOMEN: Soft and nontender. GENITOURINARY: Lujan catheter is in place properly. She is examined with the assistance of her nurse. PELVIC: Examination finds no evidence of stent extrusion. Appears the patient is having bladder spasms leading to leakage of urine around the catheter. The catheter appears to be flowing correctly and the amount of blood that is in the urine is relatively within the range of what is expected for the patient having undergone stent placement bilaterally. The patient was placed to vented trauma suction today. LABORATORY RESULTS: No new laboratories since hospital admission. ASSESSMENT AND PLAN: 1. Bilateral ureteral obstruction, likely secondary to radiation therapy. The patient now has stents present bilaterally. 2. Left forniceal rupture. The patient will be placed on vented trauma suction which should help resolve the perinephric leakage of urine from the forniceal rupture. The patient has currently been on bladder drainage, this is resulting some hematuria probably coming from the forniceal rupture of left kidney. At present time, there is a fair amount of blood in the Lujan bag, but no clots are observed. 3. Anticoagulation issues. The patient reports a spontaneous nose bleed as well as the bleeding in the genitourinary system in the last 24 hours. Based on that, checking her coagulation status, appears relevant. I would recommend to use sequential compression devices for DVT prophylaxis in this patient and consideration of whether additional anticoagulation is necessary. PT, PTT, INR will be ordered. 4. Concerns for urinary tract infection. Urine cultures are negative so far at 36 and 48 hours. Job ID: [id number]
[2020-04-19] MEDS: Morphine 4 MG/ML VIAL SLOW IVP PRN ×4 (06:19→22:01)
[2020-04-19 06:27] LABS: #Eosinphils 0.1 thou/uL (0.0-0.7); #Lymphocytes 0.7 thou/uL (1.20-3.40); #Monocytes 0.4 thou/uL (0.11-0.59); #Neutrophils 2.6 thou/uL (1.40-6.50); %Basophils 0.3 % (0.0-1.0); %Eosinophils 2.1 % (0.0-10.0); %Lymphocytes 18.3 % (21.0-51.0); %Monocytes 9.7 % (0.0-10.0); %Neutrophils 69.6 % (42.0-75.0); Hemoglobin 11.1 g/dL (12.0-16.0); Mean Corpuscular HGB CONC 33.4 g/dL (32.0-36.0); Mean Corpuscular Hemoglobin 35.5 pg (27.0-31.0); Mean Platelet Volume 7.4 fL (7.4-10.4); Platelet Count 211 thou/uL (130-400); RBC Distribution Width 12.8 % (11.5-14.5); Red Blood Cell (RBC) Count 3.12 mill/uL (4.20-5.40); White Blood Cell (WBC) Count 3.7 thou/uL (4.8-10.8)
[2020-04-19 06:32] LABS: PTT 30.4 sec (22.9-36.1); Prothrombin Time 13.1 sec (12.0-14.7)
[2020-04-19] MEDS: B & O PR PRN ×3 (06:47→17:36)
[2020-04-19 06:52] LABS: Anion Gap 10 mmol/L (10-20); BUN (Urea Nitrogen) 10 mg/dL (9.8-20.1); Calc. Creatinine Clearance 92 mL/min (70-130); Calcium 7.9 mg/dL (7.8-10.44); Carbon Dioxide 24 mmol/L (23-31); Chloride 112 mmol/L (98-107); Estimated GFR-MDRD 78; Glucose 89 mg/dL (80-115); Potassium 3.3 mmol/L (3.5-5.1); Sodium 143 mmol/L (136-145)
--- NOTE | 2020-04-19 07:33 | PDOC.HOSPP ---
- Subjective Encounter Date: 04/19/20 Encounter Time: 09:50 Subjective: Patient with continued lower abdominal spasm pain from bladder, but improved some today. No other complaints. Lower back/coccygeal pain improved with her getting up out of bed more. - Objective Vital Signs & Weight: Vital Signs (12 hours) Temp Pulse Resp BP Pulse Ox 04/18/20 20:00 97.8 F 96 16 139/65 94 L Weight Admit Weight 169 lb Weight 170 lb I&O: 04/18/20 04/19/20 04/20/20 06:59 06:59 06:59 Intake Total 2560 1961 Output Total 950 Balance 2560 1011 Result Diagrams: 04/19/20 06:07 04/19/20 06:07 Hospitalist ROS - Review of Systems Constitutional: denies: fever, chills Respiratory: denies: cough, shortness of breath Cardiovascular: denies: chest pain, palpitations Gastrointestinal: reports: abdominal pain. denies: nausea, vomiting, diarrhea, constipation Genitourinary: reports: hematuria. denies: dysuria - Medication Medications: Active Medications Generic Name Dose Route Start Last Admin Trade Name Freq PRN Reason Stop Dose Admin Hydrocodone Bitart/Acetaminophen 1 tab 04/17/20 15:43 04/18/20 07:52 [place] 5/325 PO 1 tab Q4H PRN Administration Moderate Pain (4-6) Belladonna Alkaloids/Opium 60 mg 04/18/20 20:54 04/19/20 06:47 B & O MN 04/23/20 20:55 60 mg QID PRN Administration Pain Famotidine 20 mg 04/18/20 09:00 04/18/20 20:51 Pepcid PO 20 mg BID ELEONORA Administration Sodium Chloride 1,000 mls @ 100 mls/hr 04/17/20 15:45 04/18/20 13:00 Normal Saline 0.9% IV 1,000 mls .Q10H ELEONORA Administration Morphine Sulfate 4 mg 04/17/20 15:45 04/19/20 06:19 Morphine SLOW IVP 4 mg Q4H PRN Administration Severe Pain (7-10) Nicotine 21 mg 04/18/20 09:00 04/18/20 07:58 Nicoderm Patch TD 21 mg DAILY ELEONORA Administration Ondansetron HCl 4 mg 04/17/20 15:43 04/18/20 07:10 Zofran IVP 4 mg Q6H PRN Administration Nausea/Vomiting Phenazopyridine HCl 97.5 mg 04/17/20 21:00 04/18/20 20:51 Azo Standard PO 97.5 mg BID ELEONORA Administration Sertraline HCl 100 mg 04/18/20 21:00 04/18/20 20:51 Zoloft PO 100 mg HS ELEONORA Administration Trazodone HCl 100 mg 04/17/20 21:00 04/18/20 20:52 Desyrel PO 100 mg HS ELEONORA Administration Trospium 20 mg 04/17/20 21:00 04/18/20 20:52 Trospium PO 20 mg BID ELEONORA Administration - Exam General Appearance: NAD, awake alert ENT: moist mucosa Heart: RRR, no murmur, no gallops, no rubs Respiratory: CTAB, no wheezes, no rales, no ronchi Gastrointestinal: soft, non-tender, non-distended, normal bowel sounds Psychiatric: normal affect, normal behavior, A&O x 3 Hosp A/P (1) Renal rupture Code(s): S37.069A - MAJOR LACERATION OF UNSPECIFIED KIDNEY, INITIAL ENCOUNTER Status: Acute (2) Bilateral ureteral obstruction Code(s): N13.5 - CROSSING VESSEL AND STRICTURE OF URETER W/O HYDRONEPHROSIS Status: Acute (3) Endometrial cancer Code(s): C54.1 - MALIGNANT NEOPLASM OF ENDOMETRIUM Status: Chronic (4) Major depressive disorder Code(s): F32.9 - MAJOR DEPRESSIVE DISORDER, SINGLE EPISODE, UNSPECIFIED Status : Acute (5) Insomnia Code(s): G47.00 - INSOMNIA, UNSPECIFIED Status: Acute (6) Hyperlipidemia Code(s): E78.5 - HYPERLIPIDEMIA, UNSPECIFIED Status: Acute (7) Bladder spasms Status: Acute (8) Hematuria Code(s): R31.9 - HEMATURIA, UNSPECIFIED Status: Acute - Plan Patient status post bilateral renal stent placement on 04/17/2020 for bilateral ureter obstruction, likely from extrinsic compression by soft tissue mass seen on CT. 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 Question of possible infection, though changes to the left kidney are most likely due to the forniceal rupture. Urine culture remains negative. Bladder spasms- Dr. Bergman has changed medication and is doing vented trauma suction Hematuria- will stop proph Lovenox No suspicion for cancer recurrence at this time. Patient does need to follow up with her Onc Surgeon and see if she needs a biopsy of the soft tissue mass. Will need a [address] for comparison and to rule out progression. Low back pain improved. Home once stabilized and cleared by urology. DVT proph: SCDs GI proph: Pepcid BID
[2020-04-19] MEDS ORDERED: Potassium Chloride 20 MEQ TAB PO SCH (07:45)
[2020-04-19] MEDS: Phenazopyridine HCl 97.5 MG TABLET PO SCH ×2 (08:33→21:06)
[2020-04-19] MEDS: Famotidine 20 MG TAB PO SCH ×2 (08:33→21:07)
[2020-04-19] MEDS: Nicotine 21 MG PATCH TD SCH (08:33)
[2020-04-19] MEDS: Trospium 20 MG TAB PO SCH ×2 (08:33→21:07)
[2020-04-19] MEDS: Sodium Chloride 0.9% 1,000 ML IV SCH ×3 (08:35→21:16)
[2020-04-19] MEDS: traZODone HCl 50 MG TAB PO SCH (21:07)
[2020-04-20] MEDS: B & O PR PRN ×4 (00:39→23:46)
--- NOTE | 2020-04-20 01:21 | CON ---
DATE OF CONSULTATION: 04/19/2020 INITIAL REASON FOR CONSULTATION: 1. Left ureteral obstruction with forniceal rupture, left kidney. 2. History of endometrial cancer, status post hysterectomy, bilateral salpingo-oophorectomy, chemotherapy, and external beam radiation therapy to the pelvis. 3. Left-sided flank pain. ADDITIONAL DIAGNOSIS: Bilateral ureteral obstruction as diagnosed on retrograde pyelography on 04/17/2020. BRIEF HISTORY: Ms. Sofi Dickey is a very pleasant 65-year-old white female admitted on 04/17/2020, after initial evaluation at the [facility] on the same date, where she underwent CT scanning due to left-sided flank pain. This CT scan demonstrated the presence of a left forniceal rupture resulting in perinephric urinoma. The patient presented to the emergency department here and was admitted and underwent cystourethroscopy with bilateral retrograde pyelography and bilateral stent placement on 04/17/2020. Patient initially was kept to a Lujan bag drainage, but this did not effectively drain the patient's bladder and she has been placed to vented trauma suction at present time, which is working effectively. Patient has had over 24 hours of vented trauma suction at this point, and we have modified her bladder spasm medicines such that she is having fewer bladder spasms at this point. PHYSICAL EXAMINATION: VITAL SIGNS: Patient is afebrile. Current temperature of 99.0, pulse 96, respirations 16, O2 saturation 96%, and blood pressure is 138/60. HEAD, EYES, EARS, NOSE, AND THROAT: Extraocular movements are intact. Sclerae are anicteric. Oropharynx is clear. NECK: Supple. LUNGS: Clear to auscultation bilaterally. CARDIAC: Regular rate and rhythm without murmur, rub, or gallop. BACK: No costovertebral angle tenderness on either side. EXAMINATION: Indwelling Lujan catheter is in place and is hooked to vented trauma suction. This is working effectively. The patient does report some events of urinary leakage around the catheter, which is to be expected. LABORATORY STUDIES: Patient's white cell count is 3700, hemoglobin 11.1 with hematocrit of 33.1. There is no longer any evidence of left shift. Serum chemistries show the patient's blood urea nitrogen down to 10 and creatinine improved to 0.75. ASSESSMENT: 1. Bilateral ureteral obstruction. The patient will require long-term indwelling bilateral ureteral stents due to ureteral stricturing. She is getting used to the concept of having stents in place and the fact that there will be some discomfort with them. We are working on the effective regimen for management of her bladder spasms. Currently, she is somewhat dependent upon belladonna and opioid suppositories for coiling the discomfort. We are hoping removal of her indwelling Lujan catheter may improve her symptoms further. At the present time, we are not able to remove the catheter due to the forniceal rupture history and need to document the lack of leakage before we remove the catheter. 2. Forniceal rupture. We will plan on proceeding with a bedside cystogram study tomorrow night with back filling of the patient's indwelling Lujan catheter with contrast and taking a few KUB type images. TIME SPENT WITH PATIENT: Over 35 minutes of consultation, assessment, evaluation time was spent in assessment of this patient today. Job ID: [id number]
[2020-04-20] MEDS: Morphine 4 MG/ML VIAL SLOW IVP PRN ×4 (04:30→20:05)
[2020-04-20 05:00] LABS: #Eosinphils 0.1 thou/uL (0.0-0.7); #Lymphocytes 0.6 thou/uL (1.20-3.40); #Monocytes 0.4 thou/uL (0.11-0.59); #Neutrophils 2.8 thou/uL (1.40-6.50); %Eosinophils 2.3 % (0.0-10.0); %Lymphocytes 14.7 % (21.0-51.0); %Monocytes 10.5 % (0.0-10.0); %Neutrophils 72.5 % (42.0-75.0); Hemoglobin 11.4 g/dL (12.0-16.0); Mean Corpuscular HGB CONC 33.4 g/dL (32.0-36.0); Mean Platelet Volume 7.4 fL (7.4-10.4); Platelet Count 218 thou/uL (130-400); RBC Distribution Width 12.6 % (11.5-14.5); Red Blood Cell (RBC) Count 3.16 mill/uL (4.20-5.40); White Blood Cell (WBC) Count 3.8 thou/uL (4.8-10.8)
[2020-04-20 05:07] LABS: Anion Gap 10 mmol/L (10-20); BUN (Urea Nitrogen) 7 mg/dL (9.8-20.1); Calc. Creatinine Clearance 102 mL/min (70-130); Calcium 8.1 mg/dL (7.8-10.44); Carbon Dioxide 24 mmol/L (23-31); Chloride 111 mmol/L (98-107); Estimated GFR-MDRD 87; Glucose 98 mg/dL (80-115); Potassium 3.6 mmol/L (3.5-5.1); Sodium 141 mmol/L (136-145)
--- NOTE | 2020-04-20 07:31 | PDOC.HOSPP ---
- Subjective Encounter Date: 04/20/20 Encounter Time: 11:50 Subjective: Patient reports persistent, intermittent bladder spasms that feel similar to labor pains in intensity. Gets leakage around the catheter with each spasm. No other complaints. - Objective Vital Signs & Weight: Vital Signs (12 hours) Temp Pulse Resp BP Pulse Ox 04/19/20 20:00 99.0 F 96 16 138/60 96 Weight Admit Weight 169 lb Weight 170 lb I&O: 04/19/20 04/20/20 04/21/20 06:59 06:59 06:59 Intake Total 2441 3200 Output Total 1350 700 Balance 1091 2500 Result Diagrams: 04/20/20 04:31 04/20/20 04:31 Hospitalist ROS - Review of Systems Constitutional: denies: fever, chills Respiratory: denies: cough, shortness of breath Cardiovascular: denies: chest pain, palpitations Gastrointestinal: reports: abdominal pain. denies: nausea, vomiting, diarrhea, constipation - Medication Medications: Active Medications Generic Name Dose Route Start Last Admin Trade Name Freq PRN Reason Stop Dose Admin Hydrocodone Bitart/Acetaminophen 1 tab 04/17/20 15:43 04/18/20 07:52 Sadorus 5/325 PO 1 tab Q4H PRN Administration Moderate Pain (4-6) Belladonna Alkaloids/Opium 60 mg 04/18/20 20:54 04/20/20 00:39 B & O [place] 04/23/20 20:55 60 mg QID PRN Administration Pain Famotidine 20 mg 04/18/20 09:00 04/19/20 21:07 Pepcid PO 20 mg BID ELEONORA Administration Sodium Chloride 1,000 mls @ 100 mls/hr 04/17/20 15:45 04/19/20 21:16 Normal Saline 0.9% IV 1,000 mls .Q10H ELEONORA Administration Mirabegron 50 mg 04/19/20 09:00 04/19/20 08:33 Myrbetriq Er PO 50 mg DAILY ELEONORA Administration Morphine Sulfate 4 mg 04/17/20 15:45 04/20/20 04:30 Morphine SLOW IVP 4 mg Q4H PRN Administration Severe Pain (7-10) Nicotine 21 mg 04/18/20 09:00 04/19/20 08:33 Nicoderm Patch TD 21 mg DAILY ELEONORA Administration Ondansetron HCl 4 mg 04/17/20 15:43 04/18/20 07:10 Zofran IVP 4 mg Q6H PRN Administration Nausea/Vomiting Phenazopyridine HCl 97.5 mg 04/17/20 21:00 04/19/20 21:06 Azo Standard PO 97.5 mg BID ELEONORA Administration Sertraline HCl 100 mg 04/18/20 21:00 04/19/20 21:07 Zoloft PO 100 mg HS ELEONORA Administration Sodium Chloride 10 ml 04/19/20 09:00 04/19/20 21:07 Flush - Normal Saline IVF 10 ml Q12HR ELEONORA Administration Trazodone HCl 100 mg 04/17/20 21:00 04/19/20 21:07 Desyrel PO 100 mg HS ELEONORA Administration Trospium 20 mg 04/17/20 21:00 04/19/20 21:07 Trospium PO 20 mg BID ELEONORA Administration - Exam General Appearance: NAD, awake alert ENT: moist mucosa Heart: RRR, no murmur, no gallops, no rubs Respiratory: CTAB, no wheezes, no rales, no ronchi Gastrointestinal: soft, non-tender, non-distended, normal bowel sounds Psychiatric: normal affect, normal behavior, A&O x 3 Hosp A/P (1) Renal rupture Code(s): S37.069A - MAJOR LACERATION OF UNSPECIFIED KIDNEY, INITIAL ENCOUNTER Status: Acute (2) Bilateral ureteral obstruction Code(s): N13.5 - CROSSING VESSEL AND STRICTURE OF URETER W/O HYDRONEPHROSIS Status: Acute (3) Endometrial cancer Code(s): C54.1 - MALIGNANT NEOPLASM OF ENDOMETRIUM Status: Chronic (4) Major depressive disorder Code(s): F32.9 - MAJOR DEPRESSIVE DISORDER, SINGLE EPISODE, UNSPECIFIED Status : Acute (5) Insomnia Code(s): G47.00 - INSOMNIA, UNSPECIFIED Status: Acute (6) Hyperlipidemia Code(s): E78.5 - HYPERLIPIDEMIA, UNSPECIFIED Status: Acute (7) Bladder spasms Status: Acute (8) Hematuria Code(s): R31.9 - HEMATURIA, UNSPECIFIED Status: Acute - Plan Patient status post bilateral renal stent placement on 04/17/2020 for bilateral ureter obstruction, likely from extrinsic compression by soft tissue mass seen on CT. 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 Question of possible infection, though changes to the left kidney are most likely due to the forniceal rupture. Urine culture remains negative. Bladder spasms- Dr. Bergman has changed medication and is doing vented trauma suction Hematuria- stopped proph Lovenox No suspicion for cancer recurrence at this time. Patient does need to follow up with her Onc Surgeon and see if she needs a biopsy of the soft tissue mass. Will need a [address] for comparison and to rule out progression. Waiting on forniceal rupture resolution before can d/c snyder catheter, plan on contrast study tonight per Dr. Bergman's note and if ok can try removal of snyder Home once stabilized and cleared by urology. DVT proph: SCDs GI proph: Pepcid BID
[2020-04-20] MEDS: Nicotine 21 MG PATCH TD SCH (08:52)
[2020-04-20] MEDS: Famotidine 20 MG TAB PO SCH ×2 (08:52→20:05)
[2020-04-20] MEDS: Trospium 20 MG TAB PO SCH ×2 (08:52→20:05)
[2020-04-20] MEDS: Polyethylene Glycol 3350 17 GM Packet PO SCH (08:52)
[2020-04-20] MEDS: Sodium Chloride 0.9% 1,000 ML IV SCH (08:54)
[2020-04-20] MEDS: Phenazopyridine HCl 97.5 MG TABLET PO SCH ×2 (09:50→20:06)
[2020-04-20] MEDS: HYDROcodone/Acetaminophen 5/325 mg Tablet PO PRN ×2 (11:44→16:37)
--- NOTE | 2020-04-20 12:52 | PQF ---
CLINICAL DOCUMENTATION CLARIFICATION FORM: Dear Dr. LUCI ADAM Date: 04-20-20 Please exercise your independent, professional judgment in responding to the clarification form. Clinical indicators are provided on the bottom of this form for your review. Please check appropriate box(es): [ ] UTI [ ] Contaminated urine specimen without UTI [ X ] Other diagnosis __UTI ruled out [ ] Unable to determine In addition, please specify: Present on Admission (POA): [ X ] Yes [ ] No [ ] Unable to determine For continuity of documentation, please document condition throughout progress notes and discharge summary. Thank You. To be completed by CDI/Coding staff for physician review: CLINICAL INDICATORS - SIGNS / SYMPTOMS / LABS / RESULTS AND LOCATION IN MR: CONSULT NOTE DR. DAHL 04-18-20: CONCERNS FOR URINARY TRACT INFECTION. URINE CULTURES ARE NEGATIVE SO FAR AT 36 AND 48 HRS RISK FACTORS / RESULTS AND LOCATION IN MR: H&P: 04-18-20: HX ENDOMETRIAL CANCER WITH SZ, CHEMO, REPORTS ONSET OF BLOATING SENSATION, UNDERWENT COMPLETE HYSTERECTOMY, IN WITH LEFT HYDROURETERONEPHROSIS TREATMENT / RESULTS AND LOCATION IN MR MAR: 04-17-20: PHENAZOPYRIDINE HCL PO, NS IVF CDS Signature: Mary Carmen Jasso Phone #: [phone] Date: 04-20-20 This is a permanent part of the Medical Record [facility]
[2020-04-20] MEDS ORDERED: Iopamidol-370 76% 500 ML 1 ML ONE (14:25)
[2020-04-20] MEDS ORDERED: Iopamidol 300 61% 50 ML VIAL FS ONE (14:32)
[2020-04-20] MEDS: traZODone HCl 50 MG TAB PO SCH (20:05)
--- NOTE | 2020-04-20 20:08 | RAD ---
EXAM: Retrograde IVP HISTORY: Forniceal rupture COMPARISON: 04/17/2020 FINDINGS/IMPRESSION: Limited intraoperative fluoroscopic views of the retrograde IVP were submitted f or interpretation. There are bilateral ureteral stents. Contrast is also seen in the urinary bladder and right renal collecting system on some of the provided images. No significant right-sided hydronephrosis is seen. No obvious filling defects are present. No extravasation of contrast from the right renal collecting system is seen.
--- NOTE | 2020-04-20 20:59 | PRG ---
DATE OF SERVICE: 04/20/2020 INITIAL REASON FOR CONSULTATION: 1. Forniceal rupture of the left kidney. 2. Left ureteral obstruction. 3. History of endometrial cancer, status post hysterectomy and bilateral salpingo-oophorectomy and chemotherapy, followed by external beam radiation therapy to the pelvis. 4. Left-sided flank pain. ADDITIONAL DIAGNOSES: Bilateral ureteral obstruction diagnosed on retrograde pyelography on 04/17/2020. BRIEF HISTORY: Ms. Sofi Dickey is a very pleasant 65-year-old white female admitted on 04/17/2020, after initial evaluation at the [facility] on the same date. She underwent CT scanning there due to left-sided flank pain. The scan demonstrated the presence of a left forniceal rupture resulting in perinephric urinoma on the left side. The patient was brought to the [facility] Emergency Department here and underwent cystourethroscopy with bilateral retrograde pyelography and bilateral stent placement on 04/17/2020. The patient's bladder drainage was initially kept to Lujan bag drainage. This did not effectively drain the patient's bladder and her bladder was then placed to vented trauma suction via the Lujan catheter, which has worked effectively over the last 48 hours. Patient is having fewer bladder spasms now on more aggressive bladder spasm medication. PHYSICAL EXAMINATION: VITAL SIGNS: Patient is afebrile. Current temperature 98.9, pulse 94, respirations 18, O2 saturation on room air is 94%, and blood pressure is 146/65. GENERAL: This is a pleasant white female, in no apparent distress. HEAD, EYES, EARS, NOSE, AND THROAT: Her extraocular movements are intact. Sclerae anicteric. Oropharynx is clear. NECK: Supple. LUNGS: Clear to auscultation bilaterally. CARDIAC: Regular rate and rhythm, without murmur, rub, or gallop. ABDOMEN: Soft and nontender. GENITOURINARY: An indwelling Lujan catheter remains in place. The vented trauma suction is effective and working correctly, can be cycled with the intermittent suction. LABORATORY STUDIES: White count 3800, hemoglobin is 11.4 with hematocrit of 34.0. There is no evidence of left shift at the present time. Serum chemistries showed the patient's blood urea nitrogen 7, creatinine 0.68. Radiologic studies. Please see the retrograde pyelograms performed via bladder contrast introduction from today. ASSESSMENT/PLAN: Incomplete visualization of the patient's left collecting system location of the patient's forniceal rupture. This is probably secondary to blood clot and stent. Stents were properly positioned based on previous imaging studies from the original placement. These stents on both sides clearly drained the collecting systems. Retrograde pyelography evaluation at the time of the patient's stent placement demonstrated a persistent nephrogram in both kidneys consistent with prior contrast administration in the [facility] Department and in addition, retrograde contrast administration for stent placement which was performed at the stent placement. Ruptured upper pole fornix is observed on the original retrograde studies. Today, retrograde flow into the upper collecting system was not demonstrated on the patient's left side, which is the side of the interest. Right collecting system shows no evidence of leakage. The stent itself on the left side did not have retrograde contrast flow suggesting an issue with lower aspect of the patient's stent. ASSESSMENT: Incomplete evaluation for forniceal closure and/or leakage in the surrounding tissue. PLAN: CT scan of the abdomen and pelvis, which could be performed tonight. The patient requires additional interventions. These could be performed earlier time point tomorrow. TIME SPENT WITH PATIENT: Over 35 minutes of consultation, assessment, evaluation, treatment time was given exclusive of any procedures performed. Job ID: [id number]
--- NOTE | 2020-04-20 21:16 | OP ---
DATE OF PROCEDURE: 04/20/2020 PROCEDURE PERFORMED: Introduction of contrast for retrograde pyelogram evaluation via bladder instillation of contrast. BRIEF HISTORY: Ms. Sofi Dickey is a pleasant 65-year-old white female with an unfortunate history of endometrial cancer, who underwent previous radiation therapy and has bilateral ureteral strictures, likely secondary to radiation. The patient presented with a left-sided forniceal rupture and perinephric urinoma on 02/16/2020. She underwent a cystourethroscopy with bilateral stent placement. Subsequently, had been on catheter drainage and vented trauma suction. The patient today desired to proceed with retrograde evaluation of her stents to assess for possible leakage of her collecting system. I did fill the patient's bladder with 100 mL of Omnipaque, partially diluted with sterile water and we were not able to demonstrate a retrograde flow into the left-sided stent. The patient has bilateral 8-[place] x 26 cm Polaris loop stents. Retrograde flow was not established, likely secondary to blood clot or other obstructing material in the left-sided stent. Quality retrograde flow was demonstrated on the patient's right side with no evidence of extravasation there. ASSESSMENT: Incomplete evaluation of forniceal rupture on the left side. PLAN: The patient will undergo CT imaging to evaluate the collecting system. Job ID: [id number]
--- NOTE | 2020-04-20 22:09 | CT ---
CT Abdomen W Con: 04/20/2020 12:00 AM CLINICAL INFORMATION: Left renal fornix rupture COMPARISON: Retrograde IVP 04/20/2020 TECHNIQUE: Multiple contiguous axial images were obtained and a CT of the abdomen without and with IV contrast. Postcontrast images were obtained in the excretory phase. Coronal and sagittal reformats were performed. FINDINGS: Please note the pelvis was not included on this exam. Lower Chest: within normal limits. Abdomen: Liver: within normal limits. Bile Ducts: Normal caliber. Gallbladder: No calcified gallstones. Normal caliber wall. Pancreas: within normal limits. Spleen: within normal limits. Adrenals: within normal limits. Kidneys: The pigtail portion of stents is seen in both renal pelvises sees. On the excretory phase im ages, the contrast is seen within the renal pelvises and calyces without extravasation of the contrast from either kidney or proximal collecting system. No perinephric fluid collection is seen. Peritoneum: No ascites or free air, no fluid collection. Bowel: Normal caliber. Mesentery and Retroperitoneum: On the inferior most slice image, there appears to be stranding change just to the left of the aorta and soft tissue density in this location. There may be a few tiny foci of high density in this location. No enlarged mesenteric or retroperitoneal lymph nodes. Vessels: Atherosclerotic calcifications. Abdominal Wall: within normal limits. Bones: Degenerative changes in the spine. IMPRESSION: 1. No evidence of disruption of the proximal urinary collecting system on either side 2. This exam did not include the pelvis and on the inferior most slice, there is soft tissue density with questionable increased density adjacent to the aorta. A small amount of extravasated contrast in this location cannot be excluded.
[2020-04-21] MEDS: Morphine 4 MG/ML VIAL SLOW IVP PRN ×4 (02:54→18:13)
[2020-04-21] MEDS ORDERED: diphenhydrAMINE 25 MG CAP PO SCH (03:15)
[2020-04-21] MEDS: B & O PR PRN ×3 (06:42→20:00)
--- NOTE | 2020-04-21 07:21 | PDOC.HOSPP ---
- Subjective Encounter Date: 04/21/20 Encounter Time: 15:30 Subjective: Patient feeling much better. Bladder spasms and less frequent and much less painful with the Belladona suppositories. - Objective Vital Signs & Weight: Vital Signs (12 hours) Temp Pulse Resp BP Pulse Ox 04/20/20 20:00 99.2 F 80 16 180/88 H 95 Weight Admit Weight 169 lb Weight 170 lb I&O: 04/20/20 04/21/20 04/22/20 06:59 06:59 06:59 Intake Total 3200 2320 Output Total 700 2000 Balance 2500 320 Result Diagrams: 04/20/20 04:31 04/20/20 04:31 Hospitalist ROS - Review of Systems Constitutional: denies: fever, chills Respiratory: denies: cough, shortness of breath Cardiovascular: denies: chest pain, palpitations Gastrointestinal: denies: nausea, vomiting, diarrhea, constipation - Medication Medications: Active Medications Generic Name Dose Route Start Last Admin Trade Name Freq PRN Reason Stop Dose Admin Hydrocodone Bitart/Acetaminophen 1 tab 04/17/20 15:43 04/20/20 16:37 Witt 5/325 PO 1 tab Q4H PRN Administration Moderate Pain (4-6) Belladonna Alkaloids/Opium 60 mg 04/18/20 20:54 04/21/20 06:42 B & O [place] 04/23/20 20:55 60 mg QID PRN Administration Pain Famotidine 20 mg 04/18/20 09:00 04/20/20 20:05 Pepcid PO 20 mg BID ELEONORA Administration Mirabegron 50 mg 04/19/20 09:00 04/20/20 08:52 Myrbetriq Er PO 50 mg DAILY ELEONORA Administration Morphine Sulfate 4 mg 04/17/20 15:45 04/21/20 02:54 Morphine SLOW IVP 4 mg Q4H PRN Administration Severe Pain (7-10) Nicotine 21 mg 04/18/20 09:00 04/20/20 08:52 Nicoderm Patch TD 21 mg DAILY ELEONORA Administration Ondansetron HCl 4 mg 04/17/20 15:43 04/18/20 07:10 Zofran IVP 4 mg Q6H PRN Administration Nausea/Vomiting Phenazopyridine HCl 97.5 mg 04/17/20 21:00 04/20/20 20:06 Azo Standard PO 97.5 mg BID ELEONORA Administration Polyethylene Glycol 8.5 gm 04/20/20 09:00 04/20/20 08:52 Miralax PO 8.5 gm DAILY ELEONORA Administration Sertraline HCl 100 mg 04/18/20 21:00 04/20/20 20:06 Zoloft PO 100 mg HS ELEONORA Administration Sodium Chloride 10 ml 04/19/20 09:00 04/20/20 20:06 Flush - Normal Saline IVF 10 ml Q12HR ELEONORA Administration Trazodone HCl 100 mg 04/17/20 21:00 04/20/20 20:05 Desyrel PO 100 mg HS ELEONORA Administration Trospium 20 mg 04/17/20 21:00 04/20/20 20:05 Trospium PO 20 mg BID ELEONORA Administration - Exam General Appearance: NAD, awake alert ENT: moist mucosa Heart: RRR, no murmur, no gallops, no rubs Respiratory: CTAB, no wheezes, no rales, no ronchi Gastrointestinal: soft, non-distended, normal bowel sounds, no palpable masses, no guarding, no rigidity Gastrointestinal - other findings: a little sore to touch in RUQ now but not bad Psychiatric: normal affect, normal behavior, A&O x 3 Hosp A/P (1) Renal rupture Code(s): S37.069A - MAJOR LACERATION OF UNSPECIFIED KIDNEY, INITIAL ENCOUNTER Status: Acute (2) Bilateral ureteral obstruction Code(s): N13.5 - CROSSING VESSEL AND STRICTURE OF URETER W/O HYDRONEPHROSIS Status: Acute (3) Endometrial cancer Code(s): C54.1 - MALIGNANT NEOPLASM OF ENDOMETRIUM Status: Chronic (4) Major depressive disorder Code(s): F32.9 - MAJOR DEPRESSIVE DISORDER, SINGLE EPISODE, UNSPECIFIED Status : Acute (5) Insomnia Code(s): G47.00 - INSOMNIA, UNSPECIFIED Status: Acute (6) Hyperlipidemia Code(s): E78.5 - HYPERLIPIDEMIA, UNSPECIFIED Status: Acute (7) Bladder spasms Status: Acute (8) Hematuria Code(s): R31.9 - HEMATURIA, UNSPECIFIED Status: Acute - Plan Patient status post bilateral renal stent placement on 04/17/2020 for bilateral ureter obstruction, likely from extrinsic compression by soft tissue mass seen on CT. 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 Question of possible infection, though changes to the left kidney are most likely due to the forniceal rupture. Urine culture remains negative. Bladder spasms- Dr. Bergman has changed medication and is doing vented trauma suction Hematuria- stopped proph Lovenox No suspicion for cancer recurrence at this time. Patient does need to follow up with her Onc Surgeon and see if she needs a biopsy of the soft tissue mass. Will need a [address] for comparison and to rule out progression. Waiting on forniceal rupture resolution before can d/c snyder catheter, had retrograde pyelogram last night without flow back up the left sided stent, possibly material blockage or blood clot, CT with contrast showed no obvious extravasation of contrast from left kidney or ureter. Home once stabilized and cleared by urology. DVT proph: SCDs GI proph: Pepcid BID
[2020-04-21] MEDS: Famotidine 20 MG TAB PO SCH ×2 (08:38→20:00)
[2020-04-21] MEDS: Trospium 20 MG TAB PO SCH ×2 (08:38→20:00)
[2020-04-21] MEDS: Phenazopyridine HCl 97.5 MG TABLET PO SCH ×2 (08:38→20:00)
[2020-04-21] MEDS: Nicotine 21 MG PATCH TD SCH (08:39)
[2020-04-21] MEDS: Polyethylene Glycol 3350 17 GM Packet PO SCH (08:39)
[2020-04-21] MEDS: traZODone HCl 50 MG TAB PO SCH (20:00)
--- NOTE | 2020-04-22 02:45 | PRG ---
DATE OF SERVICE: 04/21/2020 INITIAL REASON FOR CONSULTATION: 1. Forniceal rupture of left kidney. 2. Left perirenal urinoma. 3. Left ureteral obstruction. 4. History of endometrial cancer status post hysterectomy, bilateral salpingo-oophorectomy, chemotherapy, and external beam radiation therapy to the pelvis. 5. Left-sided flank pain. ADDITIONAL DIAGNOSIS: Bilateral ureteral obstruction diagnosed on retrograde pyelography 04/17/2020. OPERATIVE PROCEDURES PERFORMED DURING THE HOSPITALIZATION: Cystourethroscopy with bilateral retrograde pyelography and bilateral stent placement on 04/17/2020. BRIEF HISTORY: Ms. Sofi Dickey is a very pleasant 65-year-old white female admitted on 04/17/2020, after initial evaluation at the [facility] Emergency Department on the same date. She underwent a CT scan there that demonstrated a left forniceal rupture and perinephric urinoma on the left side. The patient was brought to the [facility] Emergency Department here. She was taken to the operating room and underwent cystourethroscopy with bilateral retrograde pyelography and bilateral stent placement on 04/17/2020. She had strictures identified in bilateral ureters. The patient's bladder was initially kept a Lujan bag drainage, this did not effectively drain the patient's bladder and subsequently she was placed to vented trauma suction via the Lujan catheter, which worked effectively. The patient was kept on vented trauma suction for [address] then [address] scanning, which demonstrated no evidence of extravasation into the perinephric space. She also underwent a limited retrograde pyelography via the stents, which demonstrated no problems on the patient's right side and indeterminate findings on the left. Subsequent CT scanning showed no extravasation when contrast was administered and followed through the collecting system phase. The patient was then kept on additional 24 hours of vented trauma suction and then today, we are allowing her to be catheter free for a trial. If she develops flank pain symptoms, we may end up having to do more investigations. PHYSICAL EXAMINATION: GENERAL: The patient is afebrile. VITAL SIGNS: Stable. HEAD, EYES, EARS, NOSE, AND THROAT: Extraocular movements are intact. Sclerae anicteric. Oropharynx is clear. NECK: Supple. LUNGS: Clear to auscultation bilaterally. CARDIAC: Regular rate and rhythm without murmur, rub, or gallop. ABDOMEN: Soft and nontender. GENITOURINARY: An indwelling Lujan catheter remains in place. During the course of examination today, we did remove the Lujan catheter. A stent was seen in the patient's urethra. No evidence of dislodgement. The patient tolerated catheter removal without difficulty. Vented trauma suction removed as well. LABORATORY STUDIES: The patient's last white count was obtained on 04/20/2020 and was 3800, hemoglobin was 11.4, and hematocrit 34 at that point. Serum chemistries also last obtained on 04/20 show the patient's blood urea nitrogen down to 7, which is about half of her admission blood urea nitrogen, and creatinine down to 0.68. ASSESSMENT AND PLAN: 1. Left perinephric urinoma secondary to forniceal rupture due to ureteral obstruction. The patient's urinoma appears resolved on CT scan imaging. If the patient does not develop acute left-sided flank pain symptoms with stents in place and without the Lujan catheter in place tonight, she may be considered suitable for discharge home. I would recommend discharging the patient home with Myrbetriq and solifenacin or VESIcare as her bladder spasm medication. The patient would not be able to use belladonna and opioid suppositories at home for bladder spasm control. 2. Bilateral ureteral strictures. The patient will need to follow up in my office for scheduling of a subsequent replacement of stents and I would recommend considering this to be done in about the 6 months time point. 3. Consideration of possible pelvic mass evaluation. The patient probably should undergo repeat imaging study in the future with respect to that and will need to follow up with her [employer] oncologist regarding those issues. Here at the [facility], I do not believe we have adequate imaging studies to assess that lesion. This should be scheduled with the protocol preferred by her [employer]PER[employer] oncologist. Over 35 minutes of consultation, bedside care was administered with the patient today, over half of which was direct contact and evaluation of the patient. Job ID: [id number]
[2020-04-22] MEDS: B & O PR PRN (05:30)
[2020-04-22] MEDS: Morphine 4 MG/ML VIAL SLOW IVP PRN (07:20)
[2020-04-22] MEDS: Ondansetron PF 4 MG/2 ML Vial IVP PRN (07:20)
[2020-04-22 07:49] VITALS: BP 131/68; TEMP 98.6
--- NOTE | 2020-04-22 08:13 | PDOC.HOSPP ---
- Subjective Encounter Date: 04/22/20 Encounter Time: 10:00 Subjective: Patient reports bladder spasms not bad, did have five over one hour this morning , but overall better. Patient woke up at 0400 AM with upper abdomen severe bloating pains, intermittent waves of nausea with retching. Got 2mg Morphine early, the another 4mg later when still severely hurting. Pain has calmed down now, nausea spells resolved with Zofran. No back pains. Urinating well. - Objective Vital Signs & Weight: Vital Signs (12 hours) Temp Pulse Resp BP Pulse Ox 04/22/20 07:45 98.6 F 86 16 131/68 95 Weight Admit Weight 169 lb Weight 170 lb I&O: 04/21/20 04/22/20 04/23/20 06:59 06:59 06:59 Intake Total 2320 800 Output Total 2000 1700 Balance 320 -900 Result Diagrams: 04/20/20 04:31 04/20/20 04:31 Hospitalist ROS - Review of Systems Constitutional: denies: fever, chills Respiratory: denies: cough, shortness of breath Cardiovascular: denies: chest pain, palpitations Gastrointestinal: reports: nausea, abdominal pain. denies: vomiting, constipation Genitourinary: denies: dysuria, hematuria - Medication Medications: Active Medications Generic Name Dose Route Start Last Admin Trade Name Freq PRN Reason Stop Dose Admin Hydrocodone Bitart/Acetaminophen 1 tab 04/17/20 15:43 04/20/20 16:37 [place] 5/325 PO 1 tab Q4H PRN Administration Moderate Pain (4-6) Belladonna Alkaloids/Opium 60 mg 04/18/20 20:54 04/22/20 05:30 B & O CA 04/23/20 20:55 60 mg QID PRN Administration Pain Famotidine 20 mg 04/18/20 09:00 04/21/20 20:00 Pepcid PO 20 mg BID ELEONORA Administration Mirabegron 50 mg 04/19/20 09:00 04/21/20 08:38 Myrbetriq Er PO 50 mg DAILY ELEONORA Administration Morphine Sulfate 2 mg 04/17/20 15:45 04/22/20 04:33 Morphine SLOW IVP 2 mg Q4H PRN Administration Moderate Pain (4-6) Morphine Sulfate 4 mg 04/17/20 15:45 04/22/20 07:20 Morphine SLOW IVP 4 mg Q4H PRN Administration Severe Pain (7-10) Nicotine 21 mg 04/18/20 09:00 04/21/20 08:39 Nicoderm Patch TD 21 mg DAILY ELEONORA Administration Ondansetron HCl 4 mg 04/17/20 15:43 04/22/20 07:20 Zofran IVP 4 mg Q6H PRN Administration Nausea/Vomiting Phenazopyridine HCl 97.5 mg 04/17/20 21:00 04/21/20 20:00 Azo Standard PO 97.5 mg BID ELEONORA Administration Polyethylene Glycol 8.5 gm 04/20/20 09:00 04/21/20 08:39 Miralax PO 8.5 gm DAILY ELEONORA Administration Sertraline HCl 100 mg 04/18/20 21:00 04/21/20 20:00 Zoloft PO 100 mg HS ELEONORA Administration Sodium Chloride 10 ml 04/19/20 09:00 04/21/20 20:03 Flush - Normal Saline IVF 10 ml Q12HR ELEONORA Administration Trazodone HCl 100 mg 04/17/20 21:00 04/21/20 20:00 Desyrel PO 100 mg HS ELEONORA Administration Trospium 20 mg 04/17/20 21:00 04/21/20 20:00 Trospium PO 20 mg BID ELEONORA Administration - Exam General Appearance: NAD, awake alert ENT: moist mucosa Heart: RRR, no murmur, no gallops, no rubs Respiratory: CTAB, no wheezes, no rales, no ronchi Gastrointestinal: soft, non-distended, normal bowel sounds, no palpable masses Gastrointestinal - other findings: mild TTP upper abdomen Psychiatric: normal affect, normal behavior, A&O x 3 Hosp A/P (1) Renal rupture Code(s): S37.069A - MAJOR LACERATION OF UNSPECIFIED KIDNEY, INITIAL ENCOUNTER Status: Acute (2) Bilateral ureteral obstruction Code(s): N13.5 - CROSSING VESSEL AND STRICTURE OF URETER W/O HYDRONEPHROSIS Status: Acute (3) Endometrial cancer Code(s): C54.1 - MALIGNANT NEOPLASM OF ENDOMETRIUM Status: Chronic (4) Major depressive disorder Code(s): F32.9 - MAJOR DEPRESSIVE DISORDER, SINGLE EPISODE, UNSPECIFIED Status : Acute (5) Insomnia Code(s): G47.00 - INSOMNIA, UNSPECIFIED Status: Acute (6) Hyperlipidemia Code(s): E78.5 - HYPERLIPIDEMIA, UNSPECIFIED Status: Acute (7) Bladder spasms Status: Acute (8) Hematuria Code(s): R31.9 - HEMATURIA, UNSPECIFIED Status: Acute - Plan Patient status post bilateral renal stent placement on 04/17/2020 for bilateral ureter obstruction, likely from extrinsic compression by soft tissue mass seen on CT. 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 Question of possible infection, though changes to the left kidney are most likely due to the forniceal rupture. Urine culture remains negative. Bladder spasms- Dr. Bergman has changed medication and symptoms improved, snyder removed yesterday Hematuria- stopped proph Lovenox, resolved No suspicion for cancer recurrence at this time. Patient does need to follow up with her Onc Surgeon and see if she needs a biopsy of the soft tissue mass. Will need a [address] for comparison and to rule out progression. CT with contrast showed no obvious extravasation of contrast from left kidney or ureter, and uroma resolution Cleared by urology to d/c home today if no left flank pain overnight off snyder, due to abd pain and nausea this AM will hold on d/c Will d/c Fl[place] and see how she does overnight off of it since she can't have it at home Needs Myrbetriq and Solifenacin or Vesicare on discharge, 6 month f/u for stent replacement. DVT proph: SCDs GI proph: Pepcid BID
[2020-04-22] MEDS: Polyethylene Glycol 3350 17 GM Packet PO SCH (08:39)
[2020-04-22] MEDS: Trospium 20 MG TAB PO SCH (08:40)
[2020-04-22] MEDS: Nicotine 21 MG PATCH TD SCH (08:40)
[2020-04-22] MEDS: Phenazopyridine HCl 97.5 MG TABLET PO SCH (08:40)
[2020-04-22] MEDS: Famotidine 20 MG TAB PO SCH (08:40)
[2020-04-22] MEDS ORDERED: Simethicone Chewable 80 MG TAB PO PRN (10:00)
[2020-04-22] MEDS ORDERED: diphenhydrAMINE 50 MG/ML VIAL IVP PRN (10:08)
[2020-04-22] MEDS: HYDROcodone/Acetaminophen 5/325 mg Tablet PO PRN ×2 (11:52→18:10)
[2020-04-22] MEDS ORDERED: Senokot 8.6 MG TAB PO PRN (16:23)
--- NOTE | 2020-04-22 16:34 | CT ---
CT OF THE ABDOMEN AND PELVIS WITH AND WITHOUT IV CONTRAST INDICATION: Concern for intra-abdominal mass; history of endometrial cancer status post radiation the rapy; persistent abdominal pain TECHNIQUE: Noncontrast CT of the abdomen and pelvis was performed. Postcontrast images were obtained in the delayed phase at 140 seconds and at 5 minutes.. Axial and coronal reformatted images were constructed from the raw data. COMPARISON: CT the abdomen with contrast dated April 20, 2020 FINDINGS: ABDOMEN: Lung bases: Mild subsegmental volume loss is seen within the left lower lobe. Liver: Small area of focal fatty infiltration is seen within the falciform ligament. Previously seen hepatic cyst on an MR examination from January 01, 2019 is no longer demonstrated. Gallbladder: Partially contracted Pancreas: Normal. Adrenal glands: Normal. Spleen: Normal. Kidneys and ureters: There are bilateral ureteral stents seen. No hydronephrosis is evident. No abnor mal enhancement is seen along the course of the ureters. There is some reticulation of the retroperitoneal fat within the periaortic region and along the course the ureters that extends into t he level of the pelvis. The bladder is largely decompressed with mild perivesicular fat stranding. No drainable fluid collection is evident. There is reticulation of the fat of the posterior pelvis an d the bilateral piriformis musculature. There is reticulation of the fat surrounding the iliac vasculature. Vasculature: There are moderate vascular calcifications seen involving the visualized vasculature. Lymph nodes:No lymphadenopathy. Free fluid in abdomen:No free fluid is evident. PELVIS: Small and large bowel: There are scattered colonic diverticula. There is some wall thickening involvi ng the sigmoid colon which is nonspecific. There is a mild amount of retained stool within the colon. Appendix:Normal Bladder: Decompressed with wall thickening and perivesicular fat stranding. Rectal and perirectal soft tissues:Normal. Reproductive structures: Surgically absent Free fluid in pelvis: Very mild free fluid Lymphadenopathy pelvis: There is an enlarged right external iliac node measuring 1.3 cm on image 69 o f series 3. Osseous structures: There is prominent Modic endplate degenerative change at L1-2 and L2-3. There is dextroscoliosis of the lumbar spine. There is scattered degenerative and osteoarthritic changes. Soft tissues:Normal. IMPRESSION: 1. Bilateral ureteral stents without evidence of obstruction. 2. No evidence to suggest recurrent pelvic or retroperitoneal abdominal mass. There is an enlarged ce ntrally hypodense lymph node, adjacent to the right external iliac artery that is suspicious for malignant lymphadenopathy. 3. Extensive reticulation of the pelvic and retroperitoneal fat with wall thickening of the bladder s uspicious for changes related to prior radiation. 4. There is prominent wall thickening of the sigmoid colon with colonic diverticulosis which also may be related to a focal thickening of the colonic santana from radiation therapy and scarring; however, a colonic diverticulitis cannot be entirely excluded.
--- NOTE | 2020-04-23 00:27 | CON ---
DATE OF CONSULTATION: 04/22/2020 CHIEF COMPLAINT: 1. Left perinephric urinoma. 2. Forniceal rupture of the left upper pole aspect of the left kidney. 3. Bilateral ureteral stricture with obstruction. 4. Now status post bilateral stents. INTERVAL HISTORY: The patient has a complaint of severe abdominal pain this morning and was kept from discharge today due to that. The patient did undergo additional CT scan imaging, which I ordered due to the patient's pain complaints. The patient had indeterminate upper tract studies and now has been without a Lujan catheter for over 24 hours. We reassessed her to evaluate for recurrence of her urinoma and also to further establish what her pelvic anatomy is with respect to her underlying endometrial cancer. PHYSICAL EXAMINATION: GENERAL: This is a pleasant white female, in no apparent distress. She reports having had severe pains earlier in the day. HEAD, EYES, EARS, NOSE, AND THROAT: Extraocular movements are intact. Sclerae anicteric. Oropharynx is clear. NECK: Supple. LUNGS: Clear bilaterally. CARDIAC: Regular rate and rhythm. ABDOMEN: Relatively soft on exam today. This is an afternoon examination. Her pain symptoms were this morning. Percussion reveals some areas of gas, but there are no areas of focal pain observed today that would be suspicious for any type of actual problem. The patient does report having had a bowel movement since her pain symptoms started. GENITOURINARY: The patient's indwelling Lujan catheter was removed yesterday and is no longer present. VITAL SIGNS: Temperature is 98.6, pulse 86, respirations 16, O2 saturation on room air is 95%, and blood pressure is 131/68. LABORATORY STUDIES: The patient has no new laboratories for CBC or electrolytes today. IMAGING STUDIES: A CT scan of the abdomen and pelvis was performed as a CT IVP protocol using 145 seconds corticomedullary phase and 5-minute emptying phase. The patient's scan does not reveal any retroperitoneal lymph nodes, lymphadenopathy or mass. The kidneys themselves excrete dyes symmetrically and stents are in good position as seen on the noncontrast phase portion of the study. Both stents appear to be functioning correctly based on the later imaging phases. There does not appear to be any significant renal mass that would be suspicious. There is no evidence of injury around the patient's ureters. There is post radiation type changes observed in the retroperitoneal space on both sides. The polaris loop stents extend to the patient's bladder, where the polaris loop stents are crossed trigonal and remain within the patient's bladder. The gastrointestinal tract shows presence of stool and gas within the patient's colon consistent with possible gas pains as a cause of the patient's discomfort. Although she had a bowel movement today, she is not completely evacuated. I reviewed the radiologist's report from this study as well and lymph node adjacent to the right external iliac artery is suspicious for malignant lymphadenopathy. Also, there are concerns that there may be diverticulitis or diverticulosis with wall thickening of the sigmoid colon present. I doubt the patient may also suffer from radiation effects to her colon as well. ASSESSMENT AND PLAN: 1. Abdominal discomfort, most likely related to gastrointestinal origin based on history, physical and radiologic findings. 2. Bladder discomfort. The patient has appropriate bladder spasm medications and should continue on Myrbetriq and trospium. She may follow up in my office at [facility], where her insurance does not permit with the [facility] group. 3. Concern for recurrence of endometrial cancer. Obviously, the patient's external iliac lymph node probably should be biopsied if this is in a suitable location for excision. General Surgery would be the appropriate consult for that. 4. Concerns regarding possible retroperitoneal mass, the patient likely has retroperitoneal radiation associated changes. TIME SPENT: I have spent over 45 minutes of consultation, evaluation and assessment time and assessment of this patient today exclusive of any procedures performed. Job ID: [id number]
[2020-04-23] MEDS ORDERED: Polyethylene Glycol 3350 17 GM Packet PO SCH (09:00)
== END 2020-04-22 18:24 | disposition home or self-care (01) | DRG 660 ==
LOC: ONC 15:32
PROVIDERS: ADMIT Family Medicine; ATTEND Family Medicine
PROC: 0T788DZ Dilation of Bilateral Ureters with Intraluminal Device, Via Natural or Artificial Opening Endoscopic (ICD-10-PCS; principal; 2020-04-17)
PROC: BT141ZZ Fluoroscopy of Kidneys, Ureters and Bladder using Low Osmolar Contrast (ICD-10-PCS; 2020-04-17)
PROC: BT140ZZ Fluoroscopy of Kidneys, Ureters and Bladder using High Osmolar Contrast (ICD-10-PCS; 2020-04-22)
DX: N13.2 Hydronephrosis with renal and ureteral calculous obstruction (principal); C77.5 Secondary and unspecified malignant neoplasm of intrapelvic lymph nodes; N36.8 Other specified disorders of urethra; N32.89 Other specified disorders of bladder; N28.89 Other specified disorders of kidney and ureter; T66.XXXA Radiation sickness, unspecified, initial encounter; G47.00 Insomnia, unspecified; E78.5 Hyperlipidemia, unspecified; F17.210 Nicotine dependence, cigarettes, uncomplicated; C54.1 Malignant neoplasm of endometrium; E78.00 Pure hypercholesterolemia, unspecified; F41.9 Anxiety disorder, unspecified; K21.9 Gastro-esophageal reflux disease without esophagitis; F32.9 Major depressive disorder, single episode, unspecified; Z90.710 Acquired absence of both cervix and uterus; Z79.899 Other long term (current) drug therapy; K73.2 Chronic active hepatitis, not elsewhere classified
CPT/HCPCS: 74160; 74178; 74420; 76140; 80048; 85025; 85610; 85730; J1100; J1200; J1650; J1885; J1956; J2175; J2270; J2405; J2550; J2704; J3010; Q0163; Q9967

== ENCOUNTER 2020-06-02 07:31 | Outpatient (CLI) | payer OTHER ==
[2020-06-02 15:02] LABS: Hemoglobin 12.4 g/dL (12.0-16.0); Mean Corpuscular HGB CONC 34.4 g/dL (32.0-36.0); Mean Corpuscular Hemoglobin 34.9 pg (27.0-31.0); Mean Platelet Volume 7.2 fL (7.4-10.4); Platelet Count 259 thou/uL (130-400); RBC Distribution Width 13.8 % (11.5-14.5); Red Blood Cell (RBC) Count 3.54 mill/uL (4.20-5.40); White Blood Cell (WBC) Count 5.4 thou/uL (4.8-10.8)
[2020-06-02 15:14] LABS: Anion Gap 14 mmol/L (10-20); BUN (Urea Nitrogen) 18 mg/dL (9.8-20.1); Calc. Creatinine Clearance 0 mL/min (70-130); Calcium 8.9 mg/dL (7.8-10.44); Carbon Dioxide 21 mmol/L (23-31); Chloride 107 mmol/L (98-107); Estimated GFR-MDRD 61; Glucose 118 mg/dL (80-115); Potassium 4.2 mmol/L (3.5-5.1); Sodium 138 mmol/L (136-145)
[2020-06-02 15:18] LABS: Bacteria/HPF 4+ HPF (None Seen); Bilirubin Negative (Negative); Blood, Urine 3+ (Negative); Clarity Extra Turbid (Clear); Glucose, Urine (Dipstick) 50 mg/dL (Negative); Ketone, Urine Negative (Negative); Leukocyte 500 Leu/uL (Negative); Nitrite Negative (Negative); Protein, Urine (Dipstick) 300 mg/dL (Neg-Trace); RBC/HPF Greater than 50 HPF (0-3); Specific Gravity, Urine 1.023 (1.002-1.036); Squamous Epithelial 21-50 HPF (0-3); Urobilinogen Normal mg/dL (Less than 2); WBC/HPF Greater than 50 HPF (0-3)
--- NOTE | 2020-06-02 18:11 | EKG ---
Test Reason : Blood Pressure : / mmHG Vent. Rate : 081 BPM Atrial Rate : 081 BPM P-R Int : 138 ms QRS Dur : 082 ms QT Int : 390 ms P-R-T Axes : 059 -25 047 degrees QTc Int : 453 ms Normal sinus rhythm Nonspecific ST-T changes Confirmed by DR. Trell CROOK ([id number]) on 06/02/2020 6:10:59 PM Referred By: LINDA Confirmed By:DR. Trell CROOK
[2020-06-03 12:27] LABS: SARS-CoV-2 MS2 Positive; SARS-CoV-2 N Gene Negative; SARS-CoV-2 S Gene Negative; SARS-CoV-2 by NAA Not Detected (NotDetected); SARS-CoV-2 orf1ab Negative
== END 2020-06-02 07:32 | disposition home or self-care (01) ==
LOC: LABBT 07:31
PROVIDERS: ATTEND Urology
DX: Z01.818 Encounter for other preprocedural examination (principal); N76.0 Acute vaginitis; R30.0 Dysuria; N13.1 Hydronephrosis with ureteral stricture, not elsewhere classified; Z20.828 Contact with and (suspected) exposure to other viral communicable diseases
CPT/HCPCS: 80048; 81001; 85027; 87086; 87635; 93005; 93010; U0003

== ENCOUNTER 2020-06-07 05:54 | Day surgery (SDC) | payer OTHER ==
[2020-06-06 11:30] VITALS: BMI 28.1
[2020-06-07] MEDS ORDERED: Levofloxacin 500 mg/D5W 100 ml Premix Bag ONE (06:56)
[2020-06-07] MEDS ORDERED: Fentanyl 100 MCG/2 ML VIAL ONE (07:10)
[2020-06-07] MEDS ORDERED: Iothalamate Meglumine 60% 50 ML VIAL FS ONE (07:13)
--- NOTE | 2020-06-07 09:08 | RAD ---
Retrograde ureterogram intraoperative fluoroscopy HISTORY: Stent replacement. FINDINGS: Intraoperative fluoroscopy was provided for retrograde study as performed by Dr. Espinoza. Single spot fluoroscopic image shows contrast opacification of mildly distended bilateral renal colle cting systems and urinary bladder. Bilateral pigtail ureteral stents in good radiographic position.
--- NOTE | 2020-06-07 09:29 | OP ---
DATE OF PROCEDURE: 06/07/2020 PREOPERATIVE DIAGNOSIS: Bilateral ureteral obstruction. POSTOPERATIVE DIAGNOSIS: Bilateral ureteral obstruction. PROCEDURES PERFORMED: Cystoscopy with bilateral retrograde pyelogram and stent exchange for 6 x 22 double-J ureteral stents bilaterally. ANESTHESIA: General. COMPLICATIONS: None. ESTIMATED BLOOD LOSS: None. SPECIMEN: None. DESCRIPTION OF PROCEDURE: After informed consent, the patient was taken to the operating room, transferred to the table on her own power. Anesthesia was established. A time-out was performed showing the correct patient, site, and procedure. Preoperative antibiotics were administered. She was prepped and draped in the lithotomy position. I began by inserting the rigid cystoscope. The bladder was systematically examined noting no mucosal abnormalities. Both ureteral orifices were normal in appearance with stents protruding from each with excessive stent length remaining in the bladder. The right stent was grasped and brought out through the urethral meatus. A wire was passed through this into the renal pelvis and a Pollack catheter passed over the wire into the distal ureter. A retrograde pyelogram was performed showing narrow ureter with no significant hydronephrosis. There were no filling defects of the ureter or renal pelvis. The wire was then replaced and a 6 x 22 double-J ureteral stent was passed over the wire with a curl in the kidney and curl in the bladder under fluoroscopic guidance. The same procedure was repeated on the left side with similar findings. The bladder was then drained. The patient awoken from anesthesia, transferred back to her hospital bed, and taken to PACU in stable condition, where she will discharge home upon recovery. Job ID: [id number]
[2020-06-07] MEDS ORDERED: Ondansetron PF 4 MG/2 ML Vial ONE (09:33)
[2020-06-07] MEDS ORDERED: Ketorolac Tromethamine 30 MG/ML VIAL ONE (09:33)
[2020-06-07] MEDS ORDERED: Lidocaine 1% PF 5 ML VIAL ONE (09:33)
[2020-06-07] MEDS ORDERED: PROPOFOL 200 MG/20 ML VIAL ONE (09:33)
[2020-06-07] MEDS ORDERED: Dexamethasone 20 MG/5 ML VIAL ONE (09:33)
== END 2020-06-07 10:31 | disposition home or self-care (01) ==
LOC: SDC 05:54
PROVIDERS: ATTEND Urology
PROC: 0T788DZ Dilation of Bilateral Ureters with Intraluminal Device, Via Natural or Artificial Opening Endoscopic (ICD-10-PCS; principal; 2020-06-07)
DX: N13.1 Hydronephrosis with ureteral stricture, not elsewhere classified (principal); N76.0 Acute vaginitis; F17.210 Nicotine dependence, cigarettes, uncomplicated; F32.9 Major depressive disorder, single episode, unspecified; E78.5 Hyperlipidemia, unspecified; G47.00 Insomnia, unspecified; Z79.899 Other long term (current) drug therapy
CPT/HCPCS: 74420; J1100; J1885; J1956; J2405; J2704; J3010

== ENCOUNTER 2020-07-04 06:29 | Outpatient (CLI) | payer OTHER ==
[2020-07-04 10:13] LABS: Hemoglobin 11.2 g/dL (12.0-16.0); Mean Corpuscular Hemoglobin 32.1 PG (27.0-33.0); Mean Corpuscular Volume 97.1 fl (80.0-100.0); Mean Platelet Volume 9.6 fl (7.4-10.4); Platelet Count 349 10x3/uL (130-400); RBC Distribution Width 14.2 % (11.5-14.5); Red Blood Cell (RBC) Count 3.49 10x6/uL (3.90-5.20); White Blood Cell (WBC) Count 7.5 10x3/uL (4.5-11.0)
[2020-07-04 10:32] LABS: Bilirubin Neg (Negative); Blood, Urine 150 (Negative); Glucose, Urine (Dipstick) Normal (Negative); Ketone, Urine Negative (Negative); Leukocyte 500 (Negative); Nitrite Negative (Negative); Protein, Urine (Dipstick) 30 mg/dl (Neg-Trace); Urobilinogen Normal mg/dL (Less than 2)
[2020-07-04 10:44] LABS: INR-International Normal Ratio 0.9; PTT 26.8 sec (22.0-33.0)
[2020-07-04 11:14] LABS: Anion Gap 17 mmol/L (10-20); BUN (Urea Nitrogen) 10 mg/dL (9.8-20.1); Calc. Creatinine Clearance 0 mL/min (70-130); Calcium 8.5 mg/dL (7.8-10.44); Carbon Dioxide 25 mmol/L (23-31); Chloride 101 mmol/L (98-107); Estimated GFR-MDRD 53; Glucose 121 mg/dL (80-115); Potassium 3.9 mmol/L (3.5-5.1); Sodium 139 mmol/L (136-145)
[2020-07-04 11:19] LABS: Clarity Slightly Cloudy (Clear)
[2020-07-04 11:21] LABS: Bacteria/HPF 4+ HPF (None Seen); RBC/HPF Greater than 50 HPF (0-3); Squamous Epithelial Greater than 50 HPF (0-3); WBC/HPF Greater than 50 HPF (0-3)
[2020-07-05 10:22] LABS: SARS-CoV-2 MS2 Positive; SARS-CoV-2 N Gene Negative; SARS-CoV-2 S Gene Negative; SARS-CoV-2 by NAA Not Detected (NotDetected); SARS-CoV-2 orf1ab Negative
== END 2020-07-04 06:30 | disposition home or self-care (01) ==
LOC: LABBT 06:29
PROVIDERS: ATTEND Urology
DX: Z01.818 Encounter for other preprocedural examination (principal); N13.5 Crossing vessel and stricture of ureter without hydronephrosis; Z20.828 Contact with and (suspected) exposure to other viral communicable diseases
CPT/HCPCS: 80048; 81001; 85027; 85610; 85730; 87086; 87635; 93005; 93010; U0003

== ENCOUNTER 2020-07-04 08:15 | Inpatient (IN) | payer OTHER ==
[2020-07-07] MEDS ORDERED: Dexamethasone 20 MG/5 ML VIAL ONE (09:24)
[2020-07-07] MEDS ORDERED: Lidocaine 1% PF 5 ML VIAL ONE (09:24)
[2020-07-07] MEDS ORDERED: Ondansetron PF 4 MG/2 ML Vial ONE (09:24)
[2020-07-07] MEDS ORDERED: Ketorolac Tromethamine 30 MG/ML VIAL ONE (09:24)
[2020-07-07] MEDS ORDERED: PROPOFOL 200 MG/20 ML VIAL ONE (09:24)
[2020-07-07] MEDS ORDERED: Glycopyrrolate 0.2 MG/ML 5 ML SYRINGE ONE (09:24)
[2020-07-07] MEDS ORDERED: ePHEDrine 50 MG/ML VIAL ONE (09:24)
[2020-07-07] MEDS ORDERED: PHENYLEPHRINE-NS 100 MCG/ML 10 ML SYRINGE ONE (09:24)
[2020-07-07] MEDS ORDERED: Rocuronium Bromide 10 MG/ML (10ML VIAL) ONE (09:24)
[2020-07-07] MEDS ORDERED: Lidocaine 1.5% w/Epi 1:200K 30 ML VIAL (Epid Use) ONE (09:24)
[2020-07-07] MEDS ORDERED: Fentanyl 100 MCG/2 ML VIAL ONE ×4 (12:18→17:19)
[2020-07-07] MEDS ORDERED: Midazolam HCl 2 mg/2 ml Vial ONE (12:58)
[2020-07-07] MEDS ORDERED: Scopolamine 1.5 mg/72 hour Patch ONE (13:13)
[2020-07-07] MEDS ORDERED: Bupivacaine 0.25% HCL 30 ML VIAL ONE (13:44)
[2020-07-07] MEDS ORDERED: Naloxone HCl 0.4 mg/ml Vial IVP PRN (13:45)
[2020-07-07] MEDS ORDERED: diphenhydrAMINE 50 MG/ML VIAL IM PRN (13:45)
[2020-07-07] MEDS ORDERED: Naloxone HCl 0.4 mg/ml Vial IV PRN (13:45)
[2020-07-07] MEDS ORDERED: Hydrocerin (Eucerin) Cream 120 gm Jar TOP PRN (13:45)
[2020-07-07] MEDS ORDERED: Bupivacaine 0.25% 10 ML VIAL EPIDURAL PRN (13:45)
[2020-07-07] MEDS ORDERED: Promethazine HCl 25 MG/ML VIAL IM PRN ×2 (13:45→17:10)
[2020-07-07] MEDS ORDERED: traMADol HCl 50 MG TAB PO PRN ×2 (13:45)
[2020-07-07] MEDS ORDERED: Zolpidem Tartrate 5 MG TAB PO PRN (13:45)
[2020-07-07] MEDS ORDERED: diphenhydrAMINE 25 MG CAP PO PRN (13:45)
[2020-07-07] MEDS ORDERED: Promethazine HCl 25 MG SUPP PR PRN (13:45)
[2020-07-07] MEDS ORDERED: Promethazine HCl 25 MG/ML VIAL SLOW IVP PRN (17:10)
[2020-07-07] MEDS ORDERED: Ondansetron HCl/PF 4 MG/2 ML Vial IVP PRN (17:10)
[2020-07-07] MEDS ORDERED: HYDROcodone/Acetaminophen 5/325 mg Tablet ONE (20:36)
[2020-07-07] MEDS ORDERED: hydrALAZINE 20 MG/ML VIAL SLOW IVP PRN (22:36)
[2020-07-07] MEDS ORDERED: Oxybutynin 5 MG TAB PO PRN (22:36)
[2020-07-07] MEDS ORDERED: Rosuvastatin 10 MG TAB PO SCH (22:45)
[2020-07-07] MEDS ORDERED: Docusate 100 MG CAP PO SCH (22:45)
[2020-07-07] MEDS ORDERED: traZODone HCl 150 MG TAB PO SCH (23:00)
[2020-07-07] MEDS: D5 1/2 NS w/20 mEq KCL 1,000 ML IV SCH (23:28)
[2020-07-07] MEDS: Ondansetron PF 4 MG/2 ML Vial IVP PRN (23:37)
--- NOTE | 2020-07-07 23:45 | OP ---
DATE OF PROCEDURE: 07/07/2020 PREOPERATIVE DIAGNOSIS: Retroperitoneal fibrosis with bilateral ureteral obstruction. POSTOPERATIVE DIAGNOSIS: Retroperitoneal fibrosis with bilateral ureteral obstruction. PROCEDURE PERFORMED: Open left ureterolysis with local peritoneum flap, right ureteral reimplant with psoas hitch, appendectomy. ANESTHESIA: General, epidural. ESTIMATED BLOOD LOSS: 150 mL. COMPLICATIONS: Severe scarring post radiation in her pelvis, unable to safely dissect the distal right ureter. BURRER HAND: Dr. Karan Atwood. DESCRIPTION OF PROCEDURE: After informed consent, the patient was taken to the operating room, transferred to the table on her own power. Anesthesia was established. A time-out was performed showing the correct patient, site, and procedure. Preoperative antibiotics were administered and a Lujan catheter was placed. 10 mL were instilled in the balloon. She was prepped and draped in the supine position. I began by making a midline incision straddling the umbilicus. This was carried down to fascia with electrocautery. Fascia was then carefully opened and the abdomen entered. There were few adhesions of the omentum to the abdominal wall which were taken down with electrocautery. She has very little omentum and overall it is insufficient for use during her ureterolysis. Bookwalter was deployed and the bowel packed to the left side of the abdomen. The retroperitoneum was opened and the ureter was palpated with the stent inside. This was dissected from well above the pelvic brim down to just at the pelvic brim, at which point, there was severe scarring/fibrosis from her previous radiation therapy. I spent a great deal of time attempting to dissect the right ureter, however, was unable to proceed more than about 2 cm. At this point, it was densely adherent to the iliac artery. I was unable to identify it distally. It became clear that a reimplant might be necessary and so we turned our attention to the left side and I was able to identify the proximal left ureter and traced this down over to the pelvic brim, at which point, it was adherent, however, the fibrosis was not as severe as the right side. I was able to dissect this free into the pelvis beyond the area of radiation fibrosis. A very small ureterotomy was inadvertently made while dissecting. This was closed with a single 4-0 Vicryl suture. Once the ureter was free, it was clear that the omentum would not be sufficient to reach and so a local peritoneum flap was created with a wide base and wrapped around the ureter. This was sutured in place with interrupted 2-0 Vicryl sutures. Care was taken to avoid injury to the epigastric vessels which were identified and unentered. We then turned our attention back to the right side. The bladder was filled by the circulating nurse to about 250 mL. The psoas tendon was identified and a psoas hitch performed using 2-0 PDS suture ensuring not to injure the genitofemoral nerve and to not suture too deeply risking injury to the femoral nerve. The sutures were tied down stretching the bladder up into the right quadrant. The ureter was transected and the stent brought out from the remaining distal ureter. The ureter was spatulated for about 1.5 cm and the ends tagged with 3-0 Vicryl suture. The bladder was then opened at the dome and the previously placed sutures in the ureter were passed in their respective spots in the cystotomy. Once the ends were secured, I passed a Sensor wire into the stent up into the renal pelvis and made sure that the stent was well positioned proximally. The wire was then removed and the distal curl of the stent placed into the cystotomy into the bladder. The reimplant was then run with the previously placed sutures forming a water-tight anastomosis. The peritoneum over the bladder was then closed over the reimplant site. The bowel was then replaced. A drain was brought out through the left lower quadrant and sutured in place with Vicryl suture. A lap count was performed and correct. I then closed the fascia in a running fashion with 0 PDS suture. Subcutaneous tissues were copiously irrigated and then the skin closed with boston. Final counts were correct. The wound and the drain sites were dressed with gauze. She was then awoken from anesthesia, transferred back to her hospital bed, and taken to PACU in stable condition, where she will be admitted to the surgical floor. Job ID: [id number] [facility]
--- NOTE | 2020-07-08 00:11 | OP ---
DATE OF PROCEDURE: 07/07/2020 SERVICE: Urology. SOLDER SPRAYER: Dr. Aftab Espinoza. PREOPERATIVE DIAGNOSIS: Retroperitoneal fibrosis. POSTOPERATIVE DIAGNOSIS: Retroperitoneal fibrosis. PROCEDURE PERFORMED: Appendectomy. INDICATION FOR PROCEDURE: Ms. Soto is a 65-year-old white female undergoing a ureterolysis bilaterally. She has a fairly severe and dense retroperitoneal fibrosis, which has failed to respond to ureteral stenting. Dr. Espinoza has planned to do a bilateral ureterolysis with possible reimplantation of necessary to try and treat her fairly dense retroperitoneal fibrosis. During the procedure, it became apparent that the patient had severe radiation changes and significant scarring and damage in her pelvis. As such, a ureteral reimplant was elected to be performed on the patient's right side. A psoas hitch was planned as well. The operative notes for this portion of the surgery can be found in Dr. Espinoza's operative notes. It became apparent that during the surgery that the patient's appendix would be somewhat buried underneath the bladder and towards the ureter, that may make future surgery extremely difficult for the patient to ever get appendicitis. There is an extremely high risk for bladder or ureteral injury in attempting to perform an appendectomy in a post-radiated field with significant anatomic changes. I discussed with Dr. Espinoza about performing a prophylactic appendectomy, so that the patient would not develop appendicitis in the future and we agreed mutually this would be the best decision for the patient to avoid future complications. DESCRIPTION OF PROCEDURE: The patient was already underway for her surgery. The full operative notes can be found in the dictated portion for Dr. Espinoza's operative notes. For the appendectomy, the appendix was found and found to be long and vermiform, but otherwise unremarkable without any evidence of inflammation. The mesoappendix was ligated with a LigaSure device along with the appendicular artery. A hemostat was placed across the base of the appendix, and then a 10 blade was used to excise the appendix off the cecum. The cecal mucosa was closed with a [id number] 3-0 Vicryl, and then the surrounding serosa was closed using a 2-0 Vicryl in a running fashion. To bury this the opening, a pursestring was placed around the appendix excision site using a 2-0 silk circumferentially. Using hemostats, the stump of the appendix was buried underneath the pursestring and the pursestring was then used to close down and bury the appendix stump underneath into the cecum. At this point, the appendectomy was completed and Dr. Espinoza continued to perform his ureteral reimplant on the right side as dictated in his operative notes. For my portion of the procedure, complications were none. ESTIMATED BLOOD LOSS: Minimal. RETAINED TUBES AND DRAINS: None. SPECIMENS: Appendix. DISPOSITION: The patient will be admitted to Dr. Esipnoza for postop recovery. He will continue to care for the patient afterwards. Job ID: [id number]
[2020-07-08 00:14] VITALS: BMI 27.8
[2020-07-08] MEDS: diphenhydrAMINE 50 MG/ML VIAL IVP PRN (01:44)
[2020-07-08 05:23] LABS: #Lymphocytes 0.5 thou/uL (1.20-3.40); #Monocytes 0.5 thou/uL (0.11-0.59); #Neutrophils 6.2 thou/uL (1.40-6.50); %Basophils 0.2 % (0.0-1.0); %Eosinophils 0.2 % (0.0-10.0); %Lymphocytes 7.4 % (21.0-51.0); %Monocytes 7.3 % (0.0-10.0); Hemoglobin 8.5 g/dL (12.0-16.0); Mean Corpuscular HGB CONC 33.4 g/dL (32.0-36.0); Mean Corpuscular Hemoglobin 32.3 pg (27.0-31.0); Mean Corpuscular Volume 96.8 fL (78.0-98.0); Mean Platelet Volume 6.5 fL (7.4-10.4); Platelet Count 332 thou/uL (130-400); RBC Distribution Width 13.7 % (11.5-14.5); Red Blood Cell (RBC) Count 2.64 mill/uL (4.20-5.40); White Blood Cell (WBC) Count 7.3 thou/uL (4.8-10.8)
[2020-07-08 05:41] LABS: Anion Gap 11 mmol/L (10-20); BUN (Urea Nitrogen) 15 mg/dL (9.8-20.1); Calc. Creatinine Clearance 60 mL/min (70-130); Carbon Dioxide 27 mmol/L (23-31); Chloride 101 mmol/L (98-107); Estimated GFR-MDRD 55; Glucose 171 mg/dL (80-115); Potassium 3.9 mmol/L (3.5-5.1); Sodium 135 mmol/L (136-145)
[2020-07-08] MEDS: HYDROcodone/Acetaminophen 5/325 mg Tablet PO PRN (08:12)
[2020-07-08] MEDS: Tamsulosin HCl 0.4 MG CAP PO SCH (08:12)
[2020-07-08] MEDS: Docusate 100 MG CAP PO SCH ×2 (08:12→20:05)
[2020-07-08] MEDS: D5 1/2 NS w/20 mEq KCL 1,000 ML IV SCH ×2 (08:19→18:23)
[2020-07-08] MEDS: fentaNYL Citrate/PF 500 MCG, Bupivacaine 10 ML in Sodium Chloride 0.9% 80 ML EPIDURAL SCH ×2 (08:50→20:34)
[2020-07-08] MEDS ORDERED: Enoxaparin Sodium 40 MG/0.4 ML SYRINGE SC SCH (09:00)
--- NOTE | 2020-07-08 16:20 | PRG ---
DATE OF SERVICE: 07/08/2020 SUBJECTIVE: No problems overnight. Pain well controlled with epidural. She denies nausea, fevers, significant bladder discomfort. OBJECTIVE: VITAL SIGNS: Afebrile. Vitals stable overnight. Good urine output, drain only 30 mL, urine mostly clear. LUNGS: Unlabored breathing, symmetric chest expansion. HEART: Regular rate and rhythm. ABDOMEN: Soft, appropriately tender, minimal distention, midline dressing in good position, not soiled. SKIN: Warm and dry. LABORATORY DATA: Hemoglobin 8.5, white count 7.3. Creatinine 1.02. ASSESSMENT AND PLAN: Postoperative day 1, open left ureterolysis, right ureteral reimplant with psoas hitch. Routine postop care: Out of bed, ambulate, to chair, incentive spirometry, DVT prophylaxis. Monitor lab work and urine and drain output. Discharge anticipated for Saturday or Saturday. Job ID: [id number]
[2020-07-08] MEDS: Nicotine 14 MG PATCH TD SCH (17:22)
[2020-07-08] MEDS: Ondansetron PF 4 MG/2 ML Vial IVP PRN (18:23)
[2020-07-08] MEDS: Rosuvastatin 10 MG TAB PO SCH (20:05)
[2020-07-08] MEDS: traZODone HCl 150 MG TAB PO SCH (20:06)
[2020-07-08] MEDS ORDERED: FLU VACC QS2020-21(6MOS UP)/PF 60 MCG/0.5 ML SYRINGE IM ONE (21:00)
[2020-07-09] MEDS: D5 1/2 NS w/20 mEq KCL 1,000 ML IV SCH ×3 (04:00→22:42)
[2020-07-09] MEDS: diphenhydrAMINE 50 MG/ML VIAL IVP PRN (04:31)
[2020-07-09 06:31] LABS: #Eosinphils 0.2 thou/uL (0.0-0.7); #Lymphocytes 1.4 thou/uL (1.20-3.40); #Monocytes 0.7 thou/uL (0.11-0.59); #Neutrophils 6.8 thou/uL (1.40-6.50); %Eosinophils 2.1 % (0.0-10.0); %Lymphocytes 15.1 % (21.0-51.0); %Monocytes 7.9 % (0.0-10.0); %Neutrophils 74.8 % (42.0-75.0); Hemoglobin 9.8 g/dL (12.0-16.0); Mean Corpuscular HGB CONC 32.9 g/dL (32.0-36.0); Mean Corpuscular Hemoglobin 32.5 pg (27.0-31.0); Mean Corpuscular Volume 98.5 fL (78.0-98.0); Mean Platelet Volume 6.7 fL (7.4-10.4); Platelet Count 367 thou/uL (130-400); RBC Distribution Width 14.1 % (11.5-14.5); Red Blood Cell (RBC) Count 3.01 mill/uL (4.20-5.40)
[2020-07-09 06:47] LABS: Anion Gap 15 mmol/L (10-20); BUN (Urea Nitrogen) 9 mg/dL (9.8-20.1); Calc. Creatinine Clearance 68 mL/min (70-130); Calcium 8.2 mg/dL (7.8-10.44); Carbon Dioxide 21 mmol/L (23-31); Chloride 102 mmol/L (98-107); Estimated GFR-MDRD 63; Glucose 131 mg/dL (80-115); Potassium 4.2 mmol/L (3.5-5.1); Sodium 134 mmol/L (136-145)
[2020-07-09] MEDS: Ondansetron PF 4 MG/2 ML Vial IVP PRN (07:44)
[2020-07-09] MEDS: HYDROcodone/Acetaminophen 5/325 mg Tablet PO PRN (07:44)
[2020-07-09] MEDS: fentaNYL Citrate/PF 500 MCG, Bupivacaine 10 ML in Sodium Chloride 0.9% 80 ML EPIDURAL SCH ×2 (09:12→21:34)
[2020-07-09] MEDS: Docusate 100 MG CAP PO SCH ×2 (09:14→19:59)
[2020-07-09] MEDS: Tamsulosin HCl 0.4 MG CAP PO SCH (09:14)
--- NOTE | 2020-07-09 12:15 | PRG ---
DATE OF SERVICE: 07/09/2020 SUBJECTIVE: This is postop day #2 for this 65-year-old white female who underwent an appendectomy and ureterolysis and right ureteral implant with psoas hitch. Her vital signs have been stable. She had just a low-grade temp at most. Her blood pressure has been good. She has produced 700 cc of urine output. She had 110 cc in her ROSEMARY. She had been comfortable until last night when the epidural became disconnected, but she is comfortable again now with the epidural. She has passed a little bit of gas. She is tolerating a diet. She is concerned about no bowel movements for a few days and says she has a chronic issue with constipation for which she takes milk of magnesia and some Metamucil. LABORATORY DATA: On lab work today, her hemoglobin is 9.8, white count is normal. Creatinine 0.9. PHYSICAL EXAMINATION: Her abdomen is soft and nontender. The incision is dressed. Serosanguineous drainage from the ROSEMARY. She had just a slight tinge of blood to her urine. Her calves are nontender. She denies any shortness of breath or any chest pain. ASSESSMENT AND PLAN: She appears to be progressing adequately. We will leave her ROSEMARY in. We will give her some milk of magnesia, 3 doses today. She has been encouraged to get up and continue walking around, which she has been doing. Her epidural catheter I imagine will stay at least another day. She most likely will go home on Saturday. Currently, she looks to be recovering well. Job ID: [id number]
[2020-07-09] MEDS: Milk Of Magnesia 30 ML UDCUP PO SCH ×2 (12:59→21:34)
[2020-07-09] MEDS: Nicotine 14 MG PATCH TD SCH (16:37)
[2020-07-09] MEDS: traZODone HCl 150 MG TAB PO SCH (20:00)
[2020-07-09] MEDS: Rosuvastatin 10 MG TAB PO SCH (20:00)
[2020-07-09] MEDS: Enoxaparin Sodium 40 MG/0.4 ML SYRINGE SC SCH (20:01)
[2020-07-10] MEDS: D5 1/2 NS w/20 mEq KCL 1,000 ML IV SCH ×3 (00:03→23:29)
[2020-07-10] MEDS: Milk Of Magnesia 30 ML UDCUP PO SCH (06:14)
[2020-07-10] MEDS: Docusate 100 MG CAP PO SCH ×2 (08:30→20:17)
[2020-07-10] MEDS: Tamsulosin HCl 0.4 MG CAP PO SCH (08:31)
[2020-07-10] MEDS: fentaNYL Citrate/PF 500 MCG, Bupivacaine 10 ML in Sodium Chloride 0.9% 80 ML EPIDURAL SCH (08:39)
[2020-07-10] MEDS ORDERED: HYDROcodone/Acetaminophen 5/325 mg Tablet PO PRN (10:17)
[2020-07-10] MEDS: HYDROcodone/Acetaminophen 5/325 mg Tablet PO PRN ×3 (10:53→19:28)
[2020-07-10] MEDS: Ondansetron PF 4 MG/2 ML Vial IVP PRN ×2 (10:54→19:29)
--- NOTE | 2020-07-10 11:00 | PRG ---
DATE OF SERVICE: 07/10/2020 Postop day 3. She is afebrile. Blood pressure is in the 90s to 100 range. She has had good urine output. Drains placed out about 110 mL again. She has at most just a low-grade temperature. She has been up and walking every day, already walked today. She still has a ZIPPER SETTER LOCKSTITCH and I believe it is going to be removed today. We will switch over to some hydrocodone. She is having some discomfort from the stent. She wanted to know why she was on Flomax. I explained that to her. She is not sure if it is making her feel like she needs to urinate more often. I think she is happy to stay on it for today though. She is tolerating a regular diet. She is passing gas, has not yet had a bowel movement. She had some milk of magnesia yesterday. She may just have to wait a bit for the bowel function to return, but she is passing gas. She had occasional nausea and has taken some Zofran. She has no shortness of breath or chest pain. Abdomen is soft. She does have some tenderness. Her incision looks good. The dressing was taken off it. She just got serous drainage now from her ROSEMARY. Her calves are nontender. Her urine is clear. She will likely go home tomorrow. Her epidural will likely be removed today. Job ID: [id number]
[2020-07-10] MEDS ORDERED: Milk Of Magnesia 30 ML UDCUP PO PRN (12:49)
[2020-07-10] MEDS: Nicotine 14 MG PATCH TD SCH (15:41)
[2020-07-10] MEDS: Rosuvastatin 10 MG TAB PO SCH (20:17)
[2020-07-10] MEDS: traZODone HCl 150 MG TAB PO SCH (20:17)
[2020-07-10] MEDS: Enoxaparin Sodium 40 MG/0.4 ML SYRINGE SC SCH (20:17)
[2020-07-11] MEDS: HYDROcodone/Acetaminophen 5/325 mg Tablet PO PRN ×2 (03:37→09:10)
[2020-07-11] MEDS: Ondansetron PF 4 MG/2 ML Vial IVP PRN ×2 (03:39→09:10)
[2020-07-11] MEDS: D5 1/2 NS w/20 mEq KCL 1,000 ML IV SCH (06:43)
[2020-07-11] MEDS: Tamsulosin HCl 0.4 MG CAP PO SCH (09:09)
[2020-07-11] MEDS: Docusate 100 MG CAP PO SCH (09:10)
[2020-07-11 11:18] VITALS: BP 119/58; TEMP 98.1
--- NOTE | 2020-07-11 13:17 | DIS ---
DATE OF ADMISSION: 07/07/2020 DATE OF DISCHARGE: 07/11/2020 DISCHARGE DIAGNOSES: Bilateral ureteral obstruction, hydronephrosis, chronic kidney disease, retroperitoneal fibrosis, history of radiation. PROCEDURES: Left open ureterolysis, right ureteral reimplant. HOSPITAL COURSE: Ms. Soto underwent an attempt at open bilateral ureterolysis. I was only successful on the left side. The right side required right ureteral reimplant with psoas hitch. She had a routine postoperative course and by postop day 4, was ambulating, managing pain with oral medications only, tolerating diet, and having normal bowel function. Her drain output was only 55, so this was removed. DISCHARGE MEDICATIONS: Resume home medications. [place] has been sent to her pharmacy. DISCHARGE PLAN: Follow up on July 18 for staple removal. DISCHARGE PHYSICAL EXAMINATION: GENERAL: No acute distress. Conversant. RESPIRATORY: Unlabored breathing. HEART: Regular rate and rhythm. ABDOMEN: Soft, nontender, nondistended. Incision line healthy. No evidence of infection. SKIN: Warm and dry. Lujan catheter will remain until July 25. Job ID: [id number]
--- NOTE | 2020-07-14 05:10 | PQF ---
Dear : Aftab Espinoza Date 07/14/20 Please exercise your independent, professional judgment in responding to the clarification form. Clinical indicators are provided on the bottom of this form for your review Can you please further clarify the diagnosis of the patient? Please check appropriate box(es): [ ] Hyponatremia [ x ] Clinically insignificant laboratory findings [ ] Other diagnosis please specify [ ] Unable to determine Physician Signature: Date/Time: For continuity of documentation, please document condition throughout progress notes and discharge summary. Thank You. To be completed by CDI/Coding staff for physician review: Present Clinical Indicators - Signs / Symptoms / Labs Results and Location in Medical Record [ x ] Sodium: 135L, 134L Laboratory 07/08 [ x ] Nausea H and P pg.3 Present Risk Factors Results and Location in Medical Record [ x ] 65 years old H and P pg.1 [ x ] s/p left ureterolysis PN 07/08 pg.1 [ x ] Retroperitoneal fibrosis OP report pg.1 Present Treatments Results and Location in Medical Record [ x ] IV Fluids MAR [ x ] Sodium monitoring Laboratory [ x ] Sodium Chloride 10ml IV MAR [facility] [employer] Teacher Signature: Iftikhar Clark Phone #: ext [phone] Date 07/14/20 This is a permanent part of the Medical Record [facility]
== END 2020-07-11 11:20 | disposition home or self-care (01) | DRG 655 ==
LOC: EDSTATUS 07-07 08:15 → SURG A 07-07 11:17 → SJJU 07-07 22:48
PROVIDERS: ADMIT Urology; ATTEND Urology
PROC: 0TN70ZZ Release Left Ureter, Open Approach (ICD-10-PCS; principal; 2020-07-07)
PROC: 0TSB0ZZ Reposition Bladder, Open Approach (ICD-10-PCS; 2020-07-07)
PROC: 0DTJ0ZZ Resection of Appendix, Open Approach (ICD-10-PCS; 2020-07-07)
PROC: 3E02340 Introduction of Influenza Vaccine into Muscle, Percutaneous Approach (ICD-10-PCS; 2020-07-08)
DX: N13.1 Hydronephrosis with ureteral stricture, not elsewhere classified (principal); Z20.828 Contact with and (suspected) exposure to other viral communicable diseases; K59.00 Constipation, unspecified; D64.9 Anemia, unspecified; F32.9 Major depressive disorder, single episode, unspecified; G47.00 Insomnia, unspecified; E78.5 Hyperlipidemia, unspecified; Z79.899 Other long term (current) drug therapy; Z90.49 Acquired absence of other specified parts of digestive tract; Z87.891 Personal history of nicotine dependence; Z23 Encounter for immunization
CPT/HCPCS: 36415; 80048; 85025; 88304; 90471; 90662; 90732; G0008; G0009; J0690; J1100; J1200; J1650; J1885; J2001; J2250; J2405; J2550; J2704; J3010; J3480; J3490; Q0163; S0020

== ENCOUNTER 2020-12-15 10:59 | Outpatient (CLI) | payer OTHER ==
[2020-12-15 12:05] LABS: Hemoglobin 12.4 g/dL (12.0-15.5); Mean Corpuscular HGB CONC 32.9 g/dL (32.0-36.0); Mean Corpuscular Hemoglobin 29.9 pg (27.0-33.0); Mean Corpuscular Volume 90.8 fl (81.6-98.3); Mean Platelet Volume 9.2 fl (7.4-10.4); Platelet Count 220 10x3/uL (150-450); RBC Distribution Width 16.7 % (11.5-14.5); Red Blood Cell (RBC) Count 4.15 10x6/uL (3.90-5.03); White Blood Cell (WBC) Count 6.7 10x3/uL (3.5-10.5)
[2020-12-15 12:20] LABS: INR-International Normal Ratio 0.9; PTT 26.1 sec (22.0-33.0); Prothrombin Time 10.4 sec (9.5-12.1)
[2020-12-15 12:23] LABS: Bilirubin Neg (Negative); Blood, Urine 10 (Negative); Clarity Clear (Clear); Glucose, Urine (Dipstick) Normal (Negative); Ketone, Urine 5 mg/dL (Negative); Leukocyte 25 (Negative); Nitrite Negative (Negative); Protein, Urine (Dipstick) 15 mg/dl (Neg-Trace); Specific Gravity, Urine 1.015 (1.002-1.036); pH, Urine 6.5 (5.0-9.0)
[2020-12-15 12:44] LABS: Anion Gap 15 mmol/L (10-20); BUN (Urea Nitrogen) 11 mg/dL (9.8-20.1); Calc. Creatinine Clearance 0 mL/min (70-130); Calcium 9.4 mg/dL (7.8-10.44); Carbon Dioxide 24 mmol/L (23-31); Chloride 101 mmol/L (98-107); Glucose 107 mg/dL (80-115); Potassium 4.1 mmol/L (3.5-5.1); Sodium 136 mmol/L (136-145)
[2020-12-15 12:53] LABS: Bacteria/HPF 2+ HPF (None Seen); RBC/HPF 0-3 HPF (0-3); Squamous Epithelial 0-3 HPF (0-3); Transitional Epithelial 0-3 HPF (None Seen); WBC/HPF 0-3 HPF (0-3)
[2020-12-15 22:12] LABS: SARS-CoV-2 PCR by NAA Not Detected (NotDetected)
== END 2020-12-15 11:00 | disposition home or self-care (01) ==
LOC: LABBT 10:59
PROVIDERS: ATTEND Urology
DX: Z01.812 Encounter for preprocedural laboratory examination (principal); N13.5 Crossing vessel and stricture of ureter without hydronephrosis; T66.XXXS Radiation sickness, unspecified, sequela; K43.2 Incisional hernia without obstruction or gangrene; N13.1 Hydronephrosis with ureteral stricture, not elsewhere classified; Z20.822 Contact with and (suspected) exposure to COVID-19
CPT/HCPCS: 80048; 81001; 85027; 85610; 85730; 87086; 87635; U0003; U0005

== ENCOUNTER 2020-12-15 11:15 | Inpatient (IN) | payer OTHER ==
[2020-12-19 12:09] VITALS: BMI 22.3
[2020-12-20] MEDS ORDERED: cefOXitin Sodium/Dextrose 2 GM/50 ML BAG ONE (08:32)
[2020-12-20] MEDS ORDERED: Sodium Chloride 0.9% 100 ML ONE (08:33)
[2020-12-20] MEDS ORDERED: Midazolam HCl 2 mg/2 ml Vial ONE (08:45)
[2020-12-20] MEDS ORDERED: Fentanyl 100 MCG/2 ML VIAL ONE ×4 (08:45→14:20)
[2020-12-20] MEDS ORDERED: HYDROcodone/Acetaminophen 5/325 mg Tablet PO PRN (09:00)
[2020-12-20] MEDS ORDERED: fentaNYL Citrate/PF 500 MCG, Bupivacaine 10 ML in Sodium Chloride 0.9% 80 ML EPIDURAL SCH (09:00)
[2020-12-20] MEDS ORDERED: diphenhydrAMINE 50 MG/ML VIAL IM PRN (09:00)
[2020-12-20] MEDS ORDERED: Zolpidem Tartrate 5 MG TAB PO PRN (09:00)
[2020-12-20] MEDS ORDERED: Hydrocerin (Eucerin) Cream 120 gm Jar TOP PRN (09:00)
[2020-12-20] MEDS ORDERED: Ondansetron PF 4 MG/2 ML Vial IVP PRN (09:00)
[2020-12-20] MEDS ORDERED: Bupivacaine 0.25% 10 ML VIAL EPIDURAL PRN (09:00)
[2020-12-20] MEDS ORDERED: Naloxone HCl 0.4 mg/ml Vial IVP PRN (09:00)
[2020-12-20] MEDS ORDERED: Naloxone HCl 0.4 mg/ml Vial IV PRN (09:00)
[2020-12-20] MEDS ORDERED: Promethazine HCl 25 MG/ML VIAL IM PRN (09:00)
[2020-12-20] MEDS ORDERED: traMADol HCl 50 MG TAB PO PRN ×2 (09:00)
[2020-12-20] MEDS ORDERED: Promethazine HCl 25 MG SUPP PR PRN (09:00)
[2020-12-20] MEDS ORDERED: EPINEPHrine 1 MG/ML AMP ONE (09:50)
[2020-12-20] MEDS ORDERED: Bupivacaine 0.25% HCL 30 ML VIAL ONE (09:50)
[2020-12-20] MEDS ORDERED: Lidocaine 1% w/Epinephrine 1:100K 20 ML VIAL ONE (10:11)
[2020-12-20] MEDS ORDERED: Lidocaine 1% PF 5 ML VIAL ONE (10:19)
[2020-12-20] MEDS ORDERED: Glycopyrrolate 0.2 MG/ML 5 ML SYRINGE ONE (10:19)
[2020-12-20] MEDS ORDERED: Lidocaine 1.5% w/Epi 1:200K 30 ML VIAL (Epid Use) ONE (10:19)
[2020-12-20] MEDS ORDERED: Ondansetron PF 4 MG/2 ML Vial ONE (10:19)
[2020-12-20] MEDS ORDERED: Ketorolac Tromethamine 30 MG/ML VIAL ONE (10:19)
[2020-12-20] MEDS ORDERED: PROPOFOL 200 MG/20 ML VIAL ONE (10:19)
[2020-12-20] MEDS ORDERED: Dexamethasone 20 MG/5 ML VIAL ONE (10:19)
[2020-12-20] MEDS ORDERED: Metoprolol Tartrate 5 MG/5 ML VIAL ONE (10:19)
[2020-12-20] MEDS ORDERED: Rocuronium Bromide 10 MG/ML (10ML VIAL) ONE (10:19)
[2020-12-20] MEDS ORDERED: HYDROmorphone 0.5 MG/0.5 ML SYRINGE ONE (14:13)
[2020-12-20] MEDS ORDERED: Promethazine HCl 25 MG/ML VIAL ONE (14:18)
[2020-12-20] MEDS ORDERED: ePHEDrine Sulfate 50 MG/10 ML VIAL ONE (15:09)
[2020-12-20] MEDS ORDERED: Oxybutynin 5 MG TAB PO PRN (15:20)
[2020-12-20] MEDS ORDERED: hydrALAZINE 20 MG/ML VIAL SLOW IVP PRN (15:20)
[2020-12-20] MEDS ORDERED: Albumin 5% 500 ML ONE (15:41)
[2020-12-20] MEDS ORDERED: diphenhydrAMINE 50 MG/ML VIAL ONE (17:02)
[2020-12-20] MEDS: Ketorolac Tromethamine 30 MG/ML VIAL IVP SCH ×2 (19:25→23:38)
[2020-12-20] MEDS: D5 1/2 NS w/20 mEq KCL 1,000 ML IV SCH (19:56)
[2020-12-20] MEDS: Famotidine/PF 20 mg/2ml Vial SLOW IVP SCH (20:07)
[2020-12-20] MEDS: diphenhydrAMINE 50 MG/ML VIAL IVP PRN ×2 (20:07→23:43)
[2020-12-20] MEDS: Docusate 100 MG CAP PO SCH (20:07)
[2020-12-20] MEDS: Rosuvastatin 10 MG TAB PO SCH (20:07)
[2020-12-20] MEDS: traZODone HCl 150 MG TAB PO SCH ×2 (20:08→23:59)
[2020-12-21] MEDS ORDERED: Sodium Chloride 0.9% 500 ML IVPB SCH ×2 (02:30→03:45)
[2020-12-21 02:44] LABS: #Eosinphils 0.1 thou/uL (0.0-0.7); #Lymphocytes 0.7 thou/uL (1.20-3.40); #Monocytes 0.2 thou/uL (0.11-0.59); #Neutrophils 5.7 thou/uL (1.40-6.50); %Basophils 0.1 % (0.0-1.0); %Monocytes 2.4 % (0.0-10.0); %Neutrophils 86.5 % (42.0-75.0); Hemoglobin 9.4 g/dL (12.0-16.0); Mean Corpuscular HGB CONC 33.6 g/dL (32.0-36.0); Mean Corpuscular Hemoglobin 31.4 pg (27.0-31.0); Mean Corpuscular Volume 93.7 fL (78.0-98.0); Mean Platelet Volume 7.4 fL (7.4-10.4); Platelet Count 154 thou/uL (130-400); RBC Distribution Width 15.9 % (11.5-14.5); Red Blood Cell (RBC) Count 2.98 mill/uL (4.20-5.40); White Blood Cell (WBC) Count 6.6 thou/uL (4.8-10.8)
[2020-12-21 03:18] LABS: Anion Gap 12 mmol/L (10-20); BUN (Urea Nitrogen) 12 mg/dL (9.8-20.1); Calc. Creatinine Clearance 54 mL/min (70-130); Calcium 8.1 mg/dL (7.8-10.44); Carbon Dioxide 19 mmol/L (23-31); Chloride 110 mmol/L (98-107); Glucose 136 mg/dL (80-115); Potassium 4.1 mmol/L (3.5-5.1); Sodium 137 mmol/L (136-145)
[2020-12-21] MEDS: D5 1/2 NS w/20 mEq KCL 1,000 ML IV SCH ×4 (03:38→20:57)
[2020-12-21] MEDS: Ketorolac Tromethamine 30 MG/ML VIAL IVP SCH ×4 (05:27→23:16)
[2020-12-21] MEDS ORDERED: Enoxaparin Sodium 40 MG/0.4 ML SYRINGE SC SCH (09:00)
[2020-12-21] MEDS: Famotidine/PF 20 mg/2ml Vial SLOW IVP SCH ×2 (10:10→20:47)
[2020-12-21] MEDS: Docusate 100 MG CAP PO SCH ×2 (10:10→20:39)
[2020-12-21] MEDS: cefTRIAXone\\ROCEPHIN 1 GM in Sodium Chloride 0.9% 100 ML IVPB SCH (12:44)
[2020-12-21] MEDS: Nicotine 21 MG PATCH TOP SCH (13:58)
[2020-12-21] MEDS: diphenhydrAMINE 25 MG CAP PO PRN (17:54)
[2020-12-21] MEDS: Rosuvastatin 10 MG TAB PO SCH (20:47)
[2020-12-21] MEDS: fentaNYL Citrate/PF 500 MCG, Bupivacaine 10 ML in Sodium Chloride 0.9% 80 ML EPIDURAL SCH (20:49)
[2020-12-21] MEDS: traZODone HCl 150 MG TAB PO SCH (21:08)
[2020-12-22] MEDS: diphenhydrAMINE 25 MG CAP PO PRN ×2 (05:51→20:44)
[2020-12-22] MEDS: Ketorolac Tromethamine 30 MG/ML VIAL IVP SCH (05:52)
[2020-12-22] MEDS: D5 1/2 NS w/20 mEq KCL 1,000 ML IV SCH ×2 (05:55→16:45)
[2020-12-22 06:01] LABS: #Eosinphils 0.2 thou/uL (0.0-0.7); #Monocytes 0.4 thou/uL (0.11-0.59); #Neutrophils 4.9 thou/uL (1.40-6.50); %Eosinophils 3.6 % (0.0-10.0); %Lymphocytes 16.1 % (21.0-51.0); %Monocytes 5.5 % (0.0-10.0); %Neutrophils 74.8 % (42.0-75.0); Hemoglobin 10.4 g/dL (12.0-16.0); Mean Corpuscular HGB CONC 32.8 g/dL (32.0-36.0); Mean Corpuscular Hemoglobin 30.7 pg (27.0-31.0); Mean Corpuscular Volume 93.7 fL (78.0-98.0); Mean Platelet Volume 7.3 fL (7.4-10.4); Platelet Count 188 thou/uL (130-400); White Blood Cell (WBC) Count 6.5 thou/uL (4.8-10.8)
[2020-12-22 06:25] LABS: Anion Gap 11 mmol/L (10-20); BUN (Urea Nitrogen) 8 mg/dL (9.8-20.1); Calc. Creatinine Clearance 52 mL/min (70-130); Carbon Dioxide 22 mmol/L (23-31); Chloride 108 mmol/L (98-107); Glucose 96 mg/dL (80-115); Potassium 4.2 mmol/L (3.5-5.1); Sodium 137 mmol/L (136-145)
[2020-12-22] MEDS: Famotidine/PF 20 mg/2ml Vial SLOW IVP SCH ×2 (08:25→20:44)
[2020-12-22] MEDS: Docusate 100 MG CAP PO SCH ×2 (08:26→20:44)
[2020-12-22] MEDS: cefTRIAXone\\ROCEPHIN 1 GM in Sodium Chloride 0.9% 100 ML IVPB SCH (08:26)
[2020-12-22] MEDS: Nicotine 21 MG PATCH TOP SCH (12:22)
[2020-12-22] MEDS: fentaNYL Citrate/PF 500 MCG, Bupivacaine 10 ML in Sodium Chloride 0.9% 80 ML EPIDURAL SCH (12:41)
[2020-12-22] MEDS: traZODone HCl 150 MG TAB PO SCH (20:43)
[2020-12-22] MEDS: Rosuvastatin 10 MG TAB PO SCH (20:44)
[2020-12-22] MEDS ORDERED: Enoxaparin Sodium 40 MG/0.4 ML SYRINGE SC SCH (21:00)
[2020-12-23] MEDS: D5 1/2 NS w/20 mEq KCL 1,000 ML IV SCH ×4 (00:14→20:19)
[2020-12-23] MEDS: fentaNYL Citrate/PF 500 MCG, Bupivacaine 10 ML in Sodium Chloride 0.9% 80 ML EPIDURAL SCH (05:40)
[2020-12-23 05:53] LABS: #Eosinphils 0.3 thou/uL (0.0-0.7); #Lymphocytes 0.9 thou/uL (1.20-3.40); #Monocytes 0.3 thou/uL (0.11-0.59); #Neutrophils 3.3 thou/uL (1.40-6.50); %Basophils 0.4 % (0.0-1.0); %Eosinophils 6.5 % (0.0-10.0); %Lymphocytes 18.1 % (21.0-51.0); %Monocytes 6.9 % (0.0-10.0); %Neutrophils 68.1 % (42.0-75.0); Hemoglobin 9.2 g/dL (12.0-16.0); Mean Corpuscular HGB CONC 32.9 g/dL (32.0-36.0); Mean Corpuscular Hemoglobin 30.7 pg (27.0-31.0); Mean Corpuscular Volume 93.1 fL (78.0-98.0); Mean Platelet Volume 7.6 fL (7.4-10.4); Platelet Count 169 thou/uL (130-400); White Blood Cell (WBC) Count 4.9 thou/uL (4.8-10.8)
[2020-12-23] MEDS: diphenhydrAMINE 25 MG CAP PO PRN ×2 (05:58→20:18)
[2020-12-23 06:11] LABS: Anion Gap 10 mmol/L (10-20); BUN (Urea Nitrogen) 5 mg/dL (9.8-20.1); Calc. Creatinine Clearance 58 mL/min (70-130); Calcium 8.1 mg/dL (7.8-10.44); Carbon Dioxide 22 mmol/L (23-31); Chloride 108 mmol/L (98-107); Glucose 104 mg/dL (80-115); Potassium 3.9 mmol/L (3.5-5.1); Sodium 136 mmol/L (136-145)
[2020-12-23] MEDS: cefTRIAXone\\ROCEPHIN 1 GM in Sodium Chloride 0.9% 100 ML IVPB SCH (10:02)
[2020-12-23] MEDS: Famotidine/PF 20 mg/2ml Vial SLOW IVP SCH ×2 (10:02→20:18)
[2020-12-23] MEDS: Docusate 100 MG CAP PO SCH ×2 (10:02→20:18)
[2020-12-23] MEDS: HYDROcodone/Acetaminophen 5/325 mg Tablet PO PRN ×3 (14:27→23:34)
[2020-12-23] MEDS: Nicotine 21 MG PATCH TOP SCH (14:28)
[2020-12-23] MEDS: Ketorolac Tromethamine 30 MG/ML VIAL IVP SCH ×2 (18:42→23:34)
[2020-12-23] MEDS ORDERED: Fentanyl 100 MCG/2 ML VIAL SLOW IVP PRN (18:48)
[2020-12-23] MEDS: traZODone HCl 150 MG TAB PO SCH (20:18)
[2020-12-23] MEDS: Rosuvastatin 10 MG TAB PO SCH (20:18)
[2020-12-24] MEDS: HYDROcodone/Acetaminophen 5/325 mg Tablet PO PRN ×3 (03:45→12:51)
[2020-12-24] MEDS: Ketorolac Tromethamine 30 MG/ML VIAL IVP SCH ×2 (05:35→12:06)
[2020-12-24] MEDS: D5 1/2 NS w/20 mEq KCL 1,000 ML IV SCH (05:35)
[2020-12-24] MEDS: Docusate 100 MG CAP PO SCH (09:05)
[2020-12-24] MEDS: Famotidine/PF 20 mg/2ml Vial SLOW IVP SCH (09:05)
[2020-12-24] MEDS: cefTRIAXone\\ROCEPHIN 1 GM in Sodium Chloride 0.9% 100 ML IVPB SCH (09:07)
[2020-12-24 12:02] VITALS: BP 135/69; TEMP 98.2
== END 2020-12-24 13:33 | disposition home or self-care (01) | DRG 331 ==
LOC: SURG A 12-20 08:33 → EDSTATUS 12-20 11:15 → SURG A 12-20 18:22
PROVIDERS: ADMIT Urology; ATTEND Urology
PROC: 0WQF0ZZ Repair Abdominal Wall, Open Approach (ICD-10-PCS; principal; 2020-12-20)
PROC: 0D1B0Z4 Bypass Ileum to Cutaneous, Open Approach (ICD-10-PCS; 2020-12-20)
PROC: 0US90ZZ Reposition Uterus, Open Approach (ICD-10-PCS; 2020-12-20)
PROC: 3E0M05Z Introduction of Adhesion Barrier into Peritoneal Cavity, Open Approach (ICD-10-PCS; 2020-12-20)
DX: K43.2 Incisional hernia without obstruction or gangrene (principal); N13.5 Crossing vessel and stricture of ureter without hydronephrosis; F32.9 Major depressive disorder, single episode, unspecified; E78.5 Hyperlipidemia, unspecified; G47.00 Insomnia, unspecified; Z90.710 Acquired absence of both cervix and uterus; Z80.0 Family history of malignant neoplasm of digestive organs; Z82.3 Family history of stroke; Z82.49 Family history of ischemic heart disease and other diseases of the circulatory system; F17.210 Nicotine dependence, cigarettes, uncomplicated; K66.0 Peritoneal adhesions (postprocedural) (postinfection); I95.9 Hypotension, unspecified
CPT/HCPCS: 36415; 80048; 85025; J0171; J0694; J0696; J1100; J1170; J1200; J1650; J1885; J2001; J2250; J2405; J2550; J2704; J3010; J3480; J3490; J7030; P9045; Q0163; S0020; S0028

== ENCOUNTER 2021-01-04 13:43 | Outpatient (CLI) | payer MEDICARE, OTHER ==
[~2021-01-04 13:43] MED LIST changes: -Dexamethasone 20 MG/5 ML VIAL ONE; -EPHEDRINE 25 MG/5 ML SYRINGE ONE; +Iopamidol-370 76% 500 ML 1 ML ONE; -Ketorolac Tromethamine 30 MG/ML VIAL ONE; -Lidocaine 1% PF 5 ML VIAL ONE; -Ondansetron PF 4 MG/2 ML Vial ONE; -PROPOFOL 200 MG/20 ML VIAL ONE
== END 2021-01-04 13:44 | disposition home or self-care (01) ==
LOC: RAD 13:43
PROVIDERS: ATTEND Urology
DX: N13.5 Crossing vessel and stricture of ureter without hydronephrosis (principal); Z98.890 Other specified postprocedural states
CPT/HCPCS: 51600; 74430; Q9967

== ENCOUNTER 2021-05-19 12:09 | Outpatient (CLI) | payer MEDICARE ==
[2021-05-19 13:49] LABS: #Eosinphils 0.2 10x3/uL (0.0-0.5); #Monocytes 0.4 10x3/uL (0.0-1.1); #Neutrophils 5.3 10x3/uL (1.5-8.4); %Basophils 0.4 % (0.0-2.0); %Eosinophils 2.6 % (0.0-6.0); %Lymphocytes 21.7 % (18.0-47.0); %Monocytes 5.6 % (0.0-10.0); %Neutrophils 69.2 % (40.0-75.0); Mean Corpuscular Hemoglobin 32.2 pg (27.0-33.0); Mean Corpuscular Volume 97.5 fl (81.6-98.3); Mean Platelet Volume 10.6 fl (7.4-10.4); Platelet Count 204 10x3/uL (150-450); RBC Distribution Width 15.4 % (11.5-14.5); Red Blood Cell (RBC) Count 4.04 10x6/uL (3.90-5.03); White Blood Cell (WBC) Count 7.7 10x3/uL (3.5-10.5)
[2021-05-19 14:39] LABS: ALT (SGPT) 11 U/L (8-55); AST (SGOT) 12 U/L (5-34); Albumin 4.2 g/dL (3.4-4.8); Alkaline Phosphatase 100 U/L (40-110); Anion Gap 15 mmol/L (10-20); BUN (Urea Nitrogen) 20 mg/dL (9.8-20.1); Bilirubin, Total 0.3 mg/dL (0.2-1.2); Calc. Creatinine Clearance 0 mL/min (70-130); Carbon Dioxide 21 mmol/L (23-31); Chloride 108 mmol/L (98-107); Globulin 2.7 g/dL (2.4-3.5); Glucose 108 mg/dL (80-115); Potassium 4.2 mmol/L (3.5-5.1); Protein, Total 6.9 g/dL (5.8-8.1); Sodium 140 mmol/L (136-145)
[2021-05-20 17:41] LABS: SARS-CoV-2 PCR by NAA Not Detected (NotDetected)
== END 2021-05-19 12:10 | disposition home or self-care (01) ==
LOC: LABBT 12:09
PROVIDERS: ATTEND Surgery
DX: Z01.818 Encounter for other preprocedural examination (principal); K43.2 Incisional hernia without obstruction or gangrene; Z20.822 Contact with and (suspected) exposure to COVID-19
CPT/HCPCS: 80053; 85025; 93005; U0003; U0005; 93010

== ENCOUNTER 2021-05-24 07:32 | Day surgery (SDC) | payer MEDICARE ==
[2021-05-23 11:12] VITALS: BMI 23.2
[2021-05-24] MEDS ORDERED: ceFAZolin 2 GM/DEX 5% 100 ML BAG ONE (08:01)
[2021-05-24] MEDS ORDERED: Lidocaine 1% w/Epinephrine 1:100K 20 ML VIAL ONE (08:24)
[2021-05-24] MEDS ORDERED: Bupivacaine 0.25% HCL 30 ML VIAL ONE (08:24)
[2021-05-24] MEDS ORDERED: Midazolam HCl 2 mg/2 ml Vial ONE (08:25)
[2021-05-24] MEDS ORDERED: Fentanyl 100 MCG/2 ML VIAL ONE ×4 (08:28→10:32)
[2021-05-24] MEDS ORDERED: HYDROmorphone 2 MG/ML VIAL ONE (08:28)
[2021-05-24] MEDS ORDERED: Dexamethasone 20 MG/5 ML VIAL ONE (08:48)
[2021-05-24] MEDS ORDERED: Glycopyrrolate 0.2 MG/ML 5 ML SYRINGE ONE (08:48)
[2021-05-24] MEDS ORDERED: Ondansetron PF 4 MG/2 ML Vial ONE (08:48)
[2021-05-24] MEDS ORDERED: Lidocaine 1% PF 5 ML VIAL ONE (08:48)
[2021-05-24] MEDS ORDERED: ePHEDrine 50 MG/ML VIAL ONE (08:48)
[2021-05-24] MEDS ORDERED: Rocuronium Bromide 10 MG/ML (10ML VIAL) ONE (08:48)
[2021-05-24] MEDS ORDERED: PHENYLEPHRINE-NS 100 MCG/ML 10 ML SYRINGE ONE (08:48)
[2021-05-24] MEDS ORDERED: PROPOFOL 200 MG/20 ML VIAL ONE (08:48)
[2021-05-24] MEDS ORDERED: HYDROmorphone 0.5 MG/0.5 ML SYRINGE ONE (10:08)
[2021-05-24] MEDS ORDERED: Ketorolac Tromethamine 30 MG/ML VIAL ONE (10:12)
[2021-05-24] MEDS ORDERED: HYDROcodone/Acetaminophen 5/325 mg Tablet ONE (11:16)
== END 2021-05-24 12:00 | disposition home or self-care (01) ==
LOC: SDC 07:32
PROVIDERS: ATTEND Surgery
PROC: 0WUF0JZ Supplement Abdominal Wall with Synthetic Substitute, Open Approach (ICD-10-PCS; principal; 2021-05-24)
PROC: 0JPT3WZ Removal of Totally Implantable Vascular Access Device from Trunk Subcutaneous Tissue and Fascia, Percutaneous Approach (ICD-10-PCS; 2021-05-24)
DX: K43.2 Incisional hernia without obstruction or gangrene (principal); G47.00 Insomnia, unspecified; E78.5 Hyperlipidemia, unspecified; Z85.048 Personal history of other malignant neoplasm of rectum, rectosigmoid junction, and anus; Z87.891 Personal history of nicotine dependence; Z79.899 Other long term (current) drug therapy; Z91.038 Other insect allergy status; Z98.890 Other specified postprocedural states
CPT/HCPCS: C1781; J1100; J1170; J1885; J2250; J2405; J2704; J3010; J3490; S0020

== ENCOUNTER 2021-06-08 10:42 | Outpatient (CLI) | payer MEDICARE | END 2021-06-08 10:43 | disposition home or self-care (01) | LOC: RAD 10:42 | PROVIDERS: ATTEND Urology | DX: R07.9 Chest pain, unspecified (principal); M54.9 Dorsalgia, unspecified | CPT/HCPCS: 71046 ==

== ENCOUNTER 2021-06-29 11:24 | Outpatient (CLI) | payer MEDICARE | END 2021-06-29 11:25 | disposition home or self-care (01) | LOC: SCSRAD 11:24 | PROVIDERS: ATTEND Family Medicine | DX: M47.22 Other spondylosis with radiculopathy, cervical region (principal); M47.814 Spondylosis without myelopathy or radiculopathy, thoracic region | CPT/HCPCS: 72040; 72070 ==

== ENCOUNTER 2021-07-17 13:06 | Outpatient (CLI) | payer MEDICARE | END 2021-07-17 13:07 | disposition home or self-care (01) | LOC: BICMAMMO 13:06 | PROVIDERS: ATTEND Family Medicine | DX: Z12.31 Encounter for screening mammogram for malignant neoplasm of breast (principal); N64.89 Other specified disorders of breast; Z80.3 Family history of malignant neoplasm of breast; Z85.89 Personal history of malignant neoplasm of other organs and systems | CPT/HCPCS: 77063; 77067 ==

== ENCOUNTER 2021-09-06 09:48 | Outpatient (CLI) | payer MEDICARE ==
[2021-09-06 11:16] LABS: Hemoglobin 13.8 g/dL (12.0-15.5); Mean Corpuscular HGB CONC 32.4 g/dL (32.0-36.0); Mean Corpuscular Hemoglobin 32.8 pg (27.0-33.0); Mean Corpuscular Volume 101.2 fl (81.6-98.3); Mean Platelet Volume 10.5 fl (7.4-10.4); Platelet Count 189 10x3/uL (150-450); RBC Distribution Width 14.6 % (11.5-14.5); Red Blood Cell (RBC) Count 4.21 10x6/uL (3.90-5.03)
[2021-09-06 11:22] LABS: ALT (SGPT) 15 U/L (8-55); AST (SGOT) 15 U/L (5-34); Albumin 4.4 g/dL (3.4-4.8); Alkaline Phosphatase 111 U/L (40-110); Anion Gap 15 mmol/L (10-20); BUN (Urea Nitrogen) 23 mg/dL (9.8-20.1); Bilirubin, Total 0.3 mg/dL (0.2-1.2); Calc. Creatinine Clearance 0 mL/min (70-130); Calcium 9.3 mg/dL (7.8-10.44); Carbon Dioxide 23 mmol/L (23-31); Chloride 105 mmol/L (98-107); Globulin 2.6 g/dL (2.4-3.5); Glucose 102 mg/dL (80-115); Potassium 4.3 mmol/L (3.5-5.1); Sodium 139 mmol/L (136-145)
[2021-09-06 21:32] LABS: SARS-CoV-2 PCR by NAA Not Detected (NotDetected)
== END 2021-09-06 09:49 | disposition home or self-care (01) ==
LOC: LABBT 09:48
PROVIDERS: ATTEND Surgery
DX: Z01.818 Encounter for other preprocedural examination (principal); K43.2 Incisional hernia without obstruction or gangrene; Z20.822 Contact with and (suspected) exposure to COVID-19
CPT/HCPCS: 80053; 85027; 93005; U0003; U0005; 93010

== ENCOUNTER 2021-09-11 05:59 | Day surgery (SDC) | payer MEDICARE ==
[2021-09-04 12:03] VITALS: BMI 23.8
[2021-09-11] MEDS ORDERED: Phenylephrine 10 MG/ML VIAL ONE (06:29)
[2021-09-11] MEDS ORDERED: Sodium Chloride 0.9% 10 ML ONE (06:29)
[2021-09-11] MEDS ORDERED: Midazolam HCl 2 mg/2 ml Vial ONE (06:29)
[2021-09-11] MEDS ORDERED: Fentanyl 100 MCG/2 ML VIAL ONE ×2 (06:29→08:38)
[2021-09-11] MEDS ORDERED: HYDROmorphone 2 MG/ML VIAL ONE (06:29)
[2021-09-11] MEDS ORDERED: Bupivacaine 0.25% HCL 30 ML VIAL ONE (07:07)
[2021-09-11] MEDS ORDERED: Xylocaine 1% w/ Epi 1:100K 10 ML VIAL ONE (07:07)
[2021-09-11] MEDS ORDERED: ceFAZolin 2 GM/DEX 5% 100 ML BAG ONE (07:31)
[2021-09-11] MEDS ORDERED: Dexamethasone 20 MG/5 ML VIAL ONE (07:38)
[2021-09-11] MEDS ORDERED: Glycopyrrolate 0.2 MG/ML 5 ML SYRINGE ONE (07:38)
[2021-09-11] MEDS ORDERED: PROPOFOL 200 MG/20 ML VIAL ONE (07:38)
[2021-09-11] MEDS ORDERED: Rocuronium Bromide 10 MG/ML (10ML VIAL) ONE (07:38)
[2021-09-11] MEDS ORDERED: Lidocaine 1% PF 5 ML VIAL ONE (07:38)
[2021-09-11] MEDS ORDERED: Ondansetron PF 4 MG/2 ML Vial ONE (07:38)
[2021-09-11] MEDS ORDERED: HYDROcodone/Acetaminophen 5/325 mg Tablet ONE (09:30)
== END 2021-09-11 10:00 | disposition home or self-care (01) ==
LOC: SDC 05:59
PROVIDERS: ATTEND Surgery
PROC: 0WUF0JZ Supplement Abdominal Wall with Synthetic Substitute, Open Approach (ICD-10-PCS; principal; 2021-09-11)
DX: K43.2 Incisional hernia without obstruction or gangrene (principal); K66.0 Peritoneal adhesions (postprocedural) (postinfection); E78.5 Hyperlipidemia, unspecified; Z79.899 Other long term (current) drug therapy; Z91.038 Other insect allergy status
CPT/HCPCS: C1781; J1100; J1170; J2250; J2370; J2405; J2704; J3010; S0020

== ENCOUNTER 2021-09-18 12:36 | Outpatient (CLI) | payer MEDICARE | END 2021-09-18 12:37 | disposition home or self-care (01) | LOC: BICULT 12:36 | PROVIDERS: ATTEND Urology | DX: N13.2 Hydronephrosis with renal and ureteral calculous obstruction (principal) | CPT/HCPCS: 76770 ==

== ENCOUNTER 2021-11-24 11:04 | Outpatient (CLI) | payer MEDICARE ==
[2021-11-24 13:33] LABS: ALT (SGPT) 15 U/L (8-55); AST (SGOT) 15 U/L (5-34); Albumin 4.4 g/dL (3.4-4.8); Alkaline Phosphatase 113 U/L (40-110); Anion Gap 16 mmol/L (10-20); BUN (Urea Nitrogen) 26 mg/dL (9.8-20.1); Bilirubin, Total 0.4 mg/dL (0.2-1.2); Calc. Creatinine Clearance 0 mL/min (70-130); Calcium 9.1 mg/dL (7.8-10.44); Carbon Dioxide 21 mmol/L (23-31); Chloride 106 mmol/L (98-107); Globulin 2.5 g/dL (2.4-3.5); Glucose 92 mg/dL (80-115); Potassium 4.3 mmol/L (3.5-5.1); Protein, Total 6.9 g/dL (5.8-8.1); Sodium 139 mmol/L (136-145)
[2021-11-24 13:36] LABS: #Eosinphils 0.2 10x3/uL (0.0-0.5); #Monocytes 0.5 10x3/uL (0.0-1.1); #Neutrophils 4.6 10x3/uL (1.5-8.4); %Basophils 0.3 % (0.0-2.0); %Eosinophils 2.3 % (0.0-6.0); %Monocytes 7.2 % (0.0-10.0); %Neutrophils 68.9 % (40.0-75.0); Hemoglobin 13.9 g/dL (12.0-15.5); Mean Corpuscular HGB CONC 33.3 g/dL (32.0-36.0); Mean Corpuscular Hemoglobin 33.7 pg (27.0-33.0); Mean Corpuscular Volume 101.2 fl (81.6-98.3); Mean Platelet Volume 10.3 fl (7.4-10.4); Platelet Count 188 10x3/uL (150-450); RBC Distribution Width 13.7 % (11.5-14.5); Red Blood Cell (RBC) Count 4.12 10x6/uL (3.90-5.03); White Blood Cell (WBC) Count 6.7 10x3/uL (3.5-10.5)
[2021-11-25 16:08] LABS: SARS-CoV-2 PCR by NAA Not Detected (NotDetected)
== END 2021-11-24 11:05 | disposition home or self-care (01) ==
LOC: LABBT 11:04
PROVIDERS: ATTEND Surgery
DX: Z01.818 Encounter for other preprocedural examination (principal); K43.2 Incisional hernia without obstruction or gangrene; Z20.822 Contact with and (suspected) exposure to COVID-19
CPT/HCPCS: 80053; 85025; 93005; U0003; U0005; 93010

== ENCOUNTER 2021-11-29 05:59 | Inpatient (IN) | payer MEDICARE ==
[2021-11-27 09:10] VITALS: BMI 24.7
[2021-11-29] MEDS ORDERED: Famotidine/PF 20 mg/2ml Vial ONE (06:34)
[2021-11-29] MEDS ORDERED: Fentanyl 100 MCG/2 ML VIAL ONE ×3 (06:34→10:38)
[2021-11-29] MEDS ORDERED: SUGAMMADEX SODIUM 200 MG/2 ML VIAL ONE (06:34)
[2021-11-29] MEDS ORDERED: Lidocaine 1% w/Epinephrine 1:100K 20 ML VIAL ONE (06:35)
[2021-11-29] MEDS ORDERED: Bupivacaine 0.25% 10 ML VIAL ONE (06:35)
[2021-11-29] MEDS ORDERED: ceFAZolin (BATCH) 2 GM/100 ML BAG ONE (07:16)
[2021-11-29] MEDS ORDERED: Midazolam HCl 2 mg/2 ml Vial ONE ×2 (07:22→07:24)
[2021-11-29] MEDS ORDERED: PROPOFOL 200 MG/20 ML VIAL ONE (07:32)
[2021-11-29] MEDS ORDERED: Rocuronium Bromide 10 MG/ML (10ML VIAL) ONE (07:32)
[2021-11-29] MEDS ORDERED: Ketorolac Tromethamine 30 MG/ML VIAL ONE (07:32)
[2021-11-29] MEDS ORDERED: Albuterol Sulfate HFA (OR ONLY) ONE (07:32)
[2021-11-29] MEDS ORDERED: ePHEDrine 50 MG/ML VIAL ONE (07:32)
[2021-11-29] MEDS ORDERED: Lidocaine 1% PF 5 ML VIAL ONE (07:32)
[2021-11-29] MEDS ORDERED: Ondansetron PF 4 MG/2 ML Vial ONE (07:32)
[2021-11-29] MEDS ORDERED: Dexamethasone 20 MG/5 ML VIAL ONE (07:32)
[2021-11-29] MEDS ORDERED: Ondansetron HCl/PF 4 MG/2 ML Vial IVP PRN (09:04)
[2021-11-29] MEDS ORDERED: Promethazine HCl 25 MG/ML VIAL IVPB PRN (09:04)
[2021-11-29] MEDS ORDERED: PACU-Morphine 4MG/ML VIAL SLOW IVP PRN (09:04)
[2021-11-29] MEDS ORDERED: Meperidine HCl/PF 25 MG/ML VIAL SLOW IVP PRN (09:04)
[2021-11-29] MEDS ORDERED: Promethazine HCl 25 MG/ML VIAL IM PRN ×2 (09:04→09:42)
[2021-11-29] MEDS ORDERED: HYDROmorphone 0.5 MG/0.5 ML SYRINGE ONE ×2 (09:39→09:41)
[2021-11-29] MEDS ORDERED: hydrALAZINE 20 MG/ML VIAL SLOW IVP PRN (09:42)
[2021-11-29] MEDS ORDERED: Ondansetron PF 4 MG/2 ML Vial IVP PRN (09:42)
[2021-11-29] MEDS ORDERED: HYDROmorphone 2 MG/ML VIAL SLOW IVP PRN (09:46)
[2021-11-29] MEDS ORDERED: fentaNYL Citrate/PF 2,000 MCG in Sodium Chloride 0.9% 60 ML IV PRN (09:48)
[2021-11-29] MEDS ORDERED: HYDROmorphone 2 MG/ML VIAL ONE (09:54)
[2021-11-29] MEDS ORDERED: CEFAZOLIN 2 GM, Admixture Fee 1 EACH in Sodium Chloride 0.9% 100 ML IVPB SCH (14:00)
[2021-11-29] MEDS: Ketorolac Tromethamine 30 MG/ML VIAL IVP SCH ×2 (14:38→18:26)
[2021-11-29] MEDS: D5 1/2 NS w/20 mEq KCL 1,000 ML IV SCH (18:25)
[2021-11-29] MEDS: CEFAZOLIN 2 GM, Admixture Fee 1 EACH in Sodium Chloride 0.9% 100 ML IVPB SCH (18:27)
[2021-11-29] MEDS: Famotidine/PF 20 mg/2ml Vial SLOW IVP SCH (20:34)
[2021-11-29] MEDS: Famotidine 20 MG TAB PO SCH (20:35)
[2021-11-30] MEDS: Ketorolac Tromethamine 30 MG/ML VIAL IVP SCH ×4 (00:03→17:51)
[2021-11-30] MEDS: CEFAZOLIN 2 GM, Admixture Fee 1 EACH in Sodium Chloride 0.9% 100 ML IVPB SCH (01:54)
[2021-11-30] MEDS: D5 1/2 NS w/20 mEq KCL 1,000 ML IV SCH ×4 (02:44→19:52)
[2021-11-30 05:21] LABS: #Eosinphils 0.1 thou/uL (0.0-0.7); #Lymphocytes 0.4 thou/uL (1.20-3.40); #Monocytes 0.4 thou/uL (0.11-0.59); #Neutrophils 6.8 thou/uL (1.40-6.50); %Eosinophils 0.9 % (0.0-10.0); %Lymphocytes 5.3 % (21.0-51.0); %Neutrophils 88.7 % (42.0-75.0); Mean Corpuscular HGB CONC 32.2 g/dL (32.0-36.0); Mean Corpuscular Hemoglobin 34.2 pg (27.0-31.0); Mean Platelet Volume 6.9 fL (7.4-10.4); Platelet Count 148 thou/uL (130-400); Red Blood Cell (RBC) Count 3.52 mill/uL (4.20-5.40); White Blood Cell (WBC) Count 7.6 thou/uL (4.8-10.8)
[2021-11-30 05:36] LABS: Anion Gap 13 mmol/L (10-20); BUN (Urea Nitrogen) 19 mg/dL (9.8-20.1); Calc. Creatinine Clearance 57 mL/min (70-130); Calcium 8.3 mg/dL (7.8-10.44); Carbon Dioxide 20 mmol/L (23-31); Chloride 108 mmol/L (98-107); Glucose 135 mg/dL (80-115); Potassium 4.2 mmol/L (3.5-5.1); Sodium 137 mmol/L (136-145)
[2021-11-30] MEDS: Famotidine/PF 20 mg/2ml Vial SLOW IVP SCH ×2 (09:52→20:01)
[2021-11-30] MEDS: Enoxaparin Sodium 40 MG/0.4 ML SYRINGE SC SCH (09:52)
[2021-11-30] MEDS: Famotidine 20 MG TAB PO SCH ×2 (09:53→20:00)
[2021-11-30] MEDS: Nicotine 21 MG PATCH TOP SCH (11:45)
[2021-11-30] MEDS: Acetaminophen 650 MG/20.3 ML UDCUP PO PRN ×2 (11:45→17:55)
[2021-11-30] MEDS: Gentamicin Ophth Soln 0.3% 5 ml Bottle L EYE SCH ×4 (11:57→19:57)
[2021-11-30] MEDS ORDERED: Bisacodyl 10 MG SUPP PR PRN (13:02)
[2021-11-30] MEDS ORDERED: Rosuvastatin 20 MG TAB PO SCH (21:00)
[2021-11-30] MEDS ORDERED: traZODone HCl 150 MG TAB PO SCH (21:00)
[2021-12-01] MEDS: Ketorolac Tromethamine 30 MG/ML VIAL IVP SCH ×3 (00:12→11:39)
[2021-12-01] MEDS: Gentamicin Ophth Soln 0.3% 5 ml Bottle L EYE SCH (00:13)
[2021-12-01] MEDS: D5 1/2 NS w/20 mEq KCL 1,000 ML IV SCH ×2 (03:56→11:25)
[2021-12-01] MEDS ORDERED: Fentanyl 100 MCG/2 ML VIAL SLOW IVP PRN (07:04)
[2021-12-01] MEDS: HYDROcodone/Acetaminophen 7.5/325 mg Tablet PO PRN ×2 (08:41→14:12)
[2021-12-01] MEDS: Famotidine/PF 20 mg/2ml Vial SLOW IVP SCH (08:43)
[2021-12-01] MEDS: Famotidine 20 MG TAB PO SCH (08:43)
[2021-12-01] MEDS: Enoxaparin Sodium 40 MG/0.4 ML SYRINGE SC SCH (08:43)
[2021-12-01] MEDS: Nicotine 21 MG PATCH TOP SCH (11:24)
[2021-12-01 11:56] VITALS: BP 122/76; TEMP 98.4
[2021-12-01] MEDS: Acetaminophen 650 MG/20.3 ML UDCUP PO PRN (12:41)
== END 2021-12-01 14:28 | disposition home or self-care (01) | DRG 355 ==
LOC: SDC 05:59 → SJJU 09:42 → EDSTATUS 11:15
PROVIDERS: ADMIT Surgery; ATTEND Surgery
PROC: 0WUF0JZ Supplement Abdominal Wall with Synthetic Substitute, Open Approach (ICD-10-PCS; principal; 2021-11-29)
DX: K43.2 Incisional hernia without obstruction or gangrene (principal); Z20.822 Contact with and (suspected) exposure to COVID-19; F17.210 Nicotine dependence, cigarettes, uncomplicated; G47.00 Insomnia, unspecified; F32.A Depression, unspecified; E78.5 Hyperlipidemia, unspecified; H10.9 Unspecified conjunctivitis; H11.32 Conjunctival hemorrhage, left eye; F41.9 Anxiety disorder, unspecified; Z85.42 Personal history of malignant neoplasm of other parts of uterus; Z79.899 Other long term (current) drug therapy; Z90.710 Acquired absence of both cervix and uterus; Z80.0 Family history of malignant neoplasm of digestive organs; Z80.3 Family history of malignant neoplasm of breast; Z82.3 Family history of stroke; Z82.49 Family history of ischemic heart disease and other diseases of the circulatory system; Z91.038 Other insect allergy status
CPT/HCPCS: 36415; 80048; 85025; 88305; C1781; J0690; J1100; J1170; J1650; J1885; J2250; J2405; J2704; J3010; J3480; J3490; S0020; S0028